=== PATIENT | male | born 1960 | race Caucasian/White ===

== ENCOUNTER → 2019-01-16 | Outpatient (CLI) | payer BC ==
[2019-01-16 23:46] LABS: ALT 81 U/L (10-49); AST 52 U/L (14-35)
== END | disposition home or self-care (01) ==
LOC: LABWHC1 16:03
PROVIDERS: ATTEND Podiatrist Foot & Ankle Surgery
DX: K74.69 Other cirrhosis of liver (principal)
CPT/HCPCS: 36415; 84450; 84460

== ENCOUNTER → 2021-10-04 | Outpatient (CLI) | payer BC ==
[2021-10-04 17:12] LABS: INR 0.9 (<1.2); Partial Thromboplastin Time 23.8 sec (22.0-30.0)
--- NOTE | 2021-10-04 19:19 | XR ---
EXAMINATION TYPE: XR chest 2V DATE OF EXAM: 10/04/2021 COMPARISON: X-ray dated 09/06/2013 HISTORY: Preoperative x-ray TECHNIQUE: Frontal and lateral views of the chest are obtained. FINDINGS: Slightly prominent left hilar shadow which could be due to summation of vascular shadows however unde rlying small hilar lesion or lymph node cannot be excluded. Grossly unremarkable lungs otherwise. No pleural effusion or definite pneumothorax. No cardiomegaly. Aortic atherosclerotic calcifications. Degenerative changes of the thoracic spine. IMPRESSION: As above.
[2021-10-04 23:18] LABS: African American GFR (CKD) 82.9 (60.0-200.0); Albumin 4.4 g/dL (3.8-4.9); BUN/Creat Ratio 11.36 Ratio (12.00-20.00); Blood Urea Nitrogen 12.5 mg/dL (9.0-27.0); Calcium 9.9 mg/dL (8.7-10.3); Globulin 2.2 g/dL (1.6-3.3); Non-African American GFR(CKD) 71.6 (60.0-200.0); Potassium 4.3 mmol/L (3.5-5.5); Total Bilirubin 0.3 mg/dL (0.30-1.20); Total Protein 6.6 g/dL (6.2-8.2)
[2021-10-04 23:22] LABS: HCT 39.3 % (39.6-50.0); HGB 13.2 g/dL (13.0-17.0); MCH 30.8 pg (27.0-32.0); MCHC 33.6 g/dL (32.0-37.0); MCV 91.8 fL (80.0-97.0); Mean Platelet Volume 10.3 fL (9.5-12.2); NRBC Per 100 WBC 0 /100 WBCS (0.0-0.0); Platelet Count 370 X 10*3/uL (140-440); RBC 4.28 X 10*6/uL (4.40-5.60); RDW 12.5 % (11.5-14.5); WBC 5.84 X 10*3/uL (4.50-10.00)
== END | disposition home or self-care (01) ==
LOC: LABPAT 15:58
PROVIDERS: ATTEND Orthopaedic Surgery Orthopaedic Surgery of the Spine
DX: Z01.812 Encounter for preprocedural laboratory examination (principal); M48.00 Spinal stenosis, site unspecified; K42.9 Umbilical hernia without obstruction or gangrene; F33.9 Major depressive disorder, recurrent, unspecified
CPT/HCPCS: 71046; 80053; 85027; 85610; 85730; 87070

== ENCOUNTER → 2021-10-06 | Outpatient (CLI) | payer BC ==
[2021-10-06 20:06] LABS: Appearance,Urine Turbid (Clear); Bacteria,Urine None Seen /HPF (None Seen); Bilirubin,Urine Negative (Negative); Blood,Urine Negative (Negative); Color,Urine Yellow (Yellow); Ketones,Urine Negative (Negative); Nitrite,Urine Negative (Negative); Specific Gravity,Urine 1.016 (1.001-1.030); Urobilinogen,Urine 0.2 (0.2,1.0)
== END | disposition home or self-care (01) ==
LOC: LABPAT 10:33
PROVIDERS: ATTEND Orthopaedic Surgery Orthopaedic Surgery of the Spine
DX: Z01.812 Encounter for preprocedural laboratory examination (principal); M48.00 Spinal stenosis, site unspecified
CPT/HCPCS: 81001

== ENCOUNTER 2021-10-12 07:15 | Inpatient (IN) | payer BC ==
[2021-10-10 15:06] VITALS: BMI 26.5
[~2021-10-12 07:15] MED LIST: VANCOMYCIN 1,250 MG in SODIUM CHLORIDE 0.9% 250 ML IVPB PRN; fentaNYL (PF) 50 MCG/ML 2 ML AMP IV PRN
[2021-10-12] MEDS: ceFAZolin 1,000 MG in SODIUM CHLORIDE 0.9% IRRIGATIO 1,000 ML IRRIGATION PRN ×2 (08:00→08:30)
[2021-10-12] MEDS ORDERED: ONDANSETRON 4 MG/2 ML VIAL ONE (08:07)
[2021-10-12] MEDS ORDERED: GLYCOPYRROLATE 0.2 MG/ML 2 ML VIAL ONE (08:27)
[2021-10-12] MEDS ORDERED: ROCURONIUM 10 MG/ML (5 ML VIAL) IV ONE (08:27)
[2021-10-12] MEDS ORDERED: ePHEDrine 50 MG/ML 1 ML VIAL ONE (08:27)
[2021-10-12] MEDS ORDERED: SUCCINYLCHOLINE CHLORIDE 100 MG/5 ML SYR IV ONE (08:27)
[2021-10-12] MEDS ORDERED: VASOPRESSIN 20 UNIT/ML 1 ML VIAL ONE (08:27)
[2021-10-12] MEDS ORDERED: KETAMINE 10 MG/ML 20 ML VIAL ONE (08:27)
[2021-10-12] MEDS ORDERED: PROPOFOL 10 MG/ML 20 ML VIAL IV ONE (08:27)
[2021-10-12] MEDS ORDERED: PHENYLEPHRINE-0.9% NACL SYG 1,000 MCG/10 ML SYRINGE ONE (08:27)
[2021-10-12] MEDS ORDERED: fentaNYL (PF) 50 MCG/ML 2 ML AMP ONE (08:27)
[2021-10-12] MEDS ORDERED: ALBUMIN HUMAN 5% (25gm) 500 ML VIAL IVPB ONE (08:27)
[2021-10-12] MEDS ORDERED: NEOSTIGMINE 1 MG/ML 10 ML VIAL ONE (08:27)
[2021-10-12] MEDS ORDERED: MIDAZOLAM 2 MG/2 ML VIAL ONE (08:27)
[2021-10-12] MEDS ORDERED: LIDOCAINE 2% INJ 20 MG/ML (2 ML VIAL) ONE (08:27)
[2021-10-12] MEDS ORDERED: LACTATED RINGERS 1,000 ML IV ONE ×5 (08:29→13:50)
[2021-10-12] MEDS ORDERED: BUPIVACAINE (PF) 0.5% 30 ML VIAL SQ ONE ×3 (09:04→09:24)
[2021-10-12] MEDS ORDERED: LIDOCAINE 2%-EPI 1:100,000 20 ML VIAL SQ ONE ×3 (09:04→09:24)
[2021-10-12] MEDS ORDERED: GELATIN SPONGE,ABSORB (LARGE) 1 EACH SPONGE TOPICAL ONE ×2 (09:25→09:45)
[2021-10-12] MEDS ORDERED: THROMBIN (BOVINE) 5,000 UNIT VIAL TOPICAL ONE ×2 (09:25→09:45)
[2021-10-12] MEDS ORDERED: BENZOCAINE/MENTHOL LOZENG 1 EACH LOZENGE MUCOUS MEM PRN (12:53)
[2021-10-12] MEDS ORDERED: HYDROmorphone 1 MG/ML 1 ML SYRINGE IVP PRN (12:53)
[2021-10-12] MEDS ORDERED: HYDROcodone/APAP 5-325MG 1 EACH TAB PO PRN (12:53)
[2021-10-12] MEDS ORDERED: ONDANSETRON 4 MG/2 ML VIAL IVP PRN (12:54)
[2021-10-12] MEDS ORDERED: SENNOSIDES-DOCUSATE SODIUM 1 EACH TAB PO PRN (12:54)
--- NOTE | 2021-10-12 13:01 | P.OP ---
Date of Procedure: 10/12/21 Preoperative Diagnosis: Spinal stenosis L3 4 L4 5 severe disc degeneration L3 4 L4 5, low back pain, lower extremity radiculopathy, facet arthrosis, degenerative scoliosis Postoperative Diagnosis: Same Anesthesia: GETA Pathology: none sent Condition: stable Disposition: PACU Description of Procedure: DESCRIPTION OF PROCEDURE(S): BRIEF OPERATIVE NOTE Preoperative Diagnosis: Spinal stenosis L3 4 L4 5 severe disc degeneration L3 4 L4 5, low back pain, lower extremity radiculopathy, facet arthrosis, degenerative scoliosis Postoperative Diagnosis: Same Procedure: Laminectomy and decompression L3 [address] navigation aided Minimally invasive Posterior lateral decompression and facet fusion L3 4 L4 5 Minimally invasive Transforaminal lumbar interbody fusion for a 360 fusion L3 4 L4 5 Discectomy for decompression L3 4 L4 5 Placement of interbody graft L3 4 L4 5 Use of computer navigation for fusion L3 4 and 5 Local autogenous bone grafting Aspiration of bone marrow from the vertebral body pedicle at L3 on the right Use of bone graft extenders Surgeon: Dr. Mariee [employer] Specialist: Yo REYES who is present throughout the entire the case persistence during positioning, dissection, exposure, visualization, and all crucial elements of the case as well as closure. Anesthesia: General anesthesia Estimated blood loss: Approximately 250 mL Complications: None apparent Components implanted: K2M minimally invasive Heth pedicle screw system withscrews measuring 6.5 mm in diameter to rods one Dover interbody cage and an expandable interbody cage with 10 mL of osteo amp bio4 bone graft substitute and 30 mL of the BX bone fibers to supplement the local autogenous bone graft and bone marrow aspirate Disposition: To recovery room in good stable condition. OPERATIVE INDICATIONS The patient has had severe issues at their lower extremity in her lower back over the past several years with significant worsening over the past several months. Over the past few months the patient had pain at their back and their lower extremities. The patient is having severe radicular symptoms at their lower extremity with weakness. The patient is having significant pain in their back. They are unable to obtain any prolonged comfort by conservative treatment. We did aggressive conservative treatment with medications therapy and interventional pain management however thery were not having any relief. The patient's imaging showed severe changes L3 4 and L4 5 which really well with his low back and lower extremity symptoms. The patient has been through conservative treatment. We discussed various treatment options including surgery, and the patient wishes to proceed with surgery We discussed the risk, patient's alternatives and benefits of surgery including but not limited to, risk of bleeding risk of infection, risk of need for further surgery, risk of decreased, loss of motion, muscle function, malunion nonunion, hardware failure, nerve damage, paralysis, heart attack, blindness and . They understood issues with the current pandemic and the possibility of exposure. OPERATIVE SUMMARY After discussing all the risks, patient alternatives and benefits at length, the patient elected to proceed with surgical intervention, signed informed consent, and presented for their procedure. The patient was seen and examined in the preoperative holding area and the surgical site was marked. The patient was given antibiotics and brought to the operating room. The patient was sedated and intubated by anesthesia in standard fashion. The patient was positioned on to the operating room table in a prone position on the appropriate frame which was well-padded and well molded. We were careful to pad any bony prominences and pressure points. We were careful to maintain the patient's cervical spine and good neutral alignment and position throughout. The patient was prepped and draped in a normal standard fashion. An appropriate timeout and keystone protocol performed. We were able to proceed with the surgery. The local wound area was infiltrated with local anesthetic at L3 4 and 5 and at the right iliac crest. Over the right iliac crest I was able to make small stab incisions and establish a guidepin screw fixation to the iliac crest 2. I was able place the computer referencing device over the guidepins to establish an appropriate reference point for the Ziem CT navigation. We then were able to place patient in an appropriate drape and do a navigation spin for visualization and 3-D reconstruction of the lumbar spine. I was able utilize C-arm guidance and navigation to establish appropriate position over the pedicles bilaterally at the appropriate levels . With the appropriate levels of L3 4 and 5 confirmed was able to make small incisions over the appropriate pedicle sites bilaterally. Utilizing the computer navigation device I was able to establish bony landmarks at the right iliac crest for a bony reference point for the navigation device. I was able to establish a Jamshidi needle over the lateral aspect of the pedicle and advanced the trocar into the pedicle being careful not to breech superiorly inferiorly medially or laterally using computer navigation device. Position was confirmed regularly with AP and lateral images on C-arm and with the computer navigation device at the appropriate levels bilaterally. I was able to establish the trocar into the pedicle appropriately into the posterior aspect of the vertebral body bilaterally at the appropriate levels. This was done at each of the pedicle positions and each of the vertebrae. At the superior vertebrae of L3 on the right I was able to take approximately 25 mL of bone aspiration for use later in the case to supplement the allograft and autograft bone. I was able place the guidewire into the trocar and into the vertebral body appropriately under C-arm guidance. Dissection was taken down over the wire to the appropriate starting position for the screw placed. The appropriate length screw was chosen, threaded over the guidewire and screwed appropriately into the pedicle and vertebral body under C-arm guidance in excellent alignment and position with good bony purchase. This is done at each of the screw sites at the appropriate levels at L3 4 and 5 bilaterally.. With the screws intact I extended the incision to connect the screw hole sites on the most symptomatic side on the left. I dissected down to establish access over the pars and lamina to the base of the spinous process. I was able to expose the facet joint. The capsule the facet was taken down and showed some facet arthrosis at the joint. I was able to use a combination of curettes and Kerrison rongeurs and a high-speed drill to take down the facet joint and do a facetectomy. I was able get excellent foraminal decompression and central decompression with undermining across midline to perform a laminectomy centrally and contralaterally. I was able get good central decompression. The ligamentum flavum was taken down to further decompress centrally and at bilateral neural foramen. I was able to expose the disc space and visualize the traversing nerve root. Note was made of some disc protrusion and disc herniation that was abutting the traversing nerve root at the level causing further compression of the nerve root. I was able to establish a annulotomy at the appropriate level protecting soft tissue and neural structures. Note was made of some severe disc desiccation at the disc with essentially complete disc height loss at L4 5 and significant disc degeneration at L3 4.. I performed a complete discectomy with accommodation of curettes and rasps and scrapers. I was able get good endplate preparation at the disc space. I sized for the appropriate size interbody spacer protecting the soft tissue and neural structures. The wound was copiously irrigated and suctioned dry. There is no evidence of any dural tear or leak. I was able to pack the disc space with local autogenous bone graft as well as a small amount of bone graft which was also placed into the interbody cage itself. Protecting the soft tissue structures and neural structures I was able place the interbody cage in good alignment and good position with good fit and fill at the interbody space. Position was confirmed with C-arm guidance. Good hemostasis maintained. There is no evidence of any dural tear or leak. The wound was irrigated and suctioned dry. With the hardware intact, intraoperative C-arm imaging was again taken which showed good alignment and position of the hardware at the appropriate levels at L3-L4 and L5. We were then able to measure, contour and place the rods and appropriate hardware bilaterally. I was able to place capcrews, tighten them down, and torque them with the torque screwdriver appropriately. With this intact I was able to place the local autogenous bone graft with additional bone graft enhancer as necessary into the posterior lateral gutters over the decorticated transverse processes and facet joints on the contralateral side. The remainder of the bone graft was placed over the facet joint on the contralateral side after taking down the facet joint capsule. With the bone graft intact, a stable construct, and good decompression at the appropriate levels, we were able to proceed with closure. Good hemostasis was maintained. There is no evidence of dural tear or leak. The fascia was closed for a watertight closure. he subcuticular tissue was closed with absorbable suture. The wound was cleaned and dried and dressed with the appropriate dressing. The drapes were broken down. The patient was gently rolled back onto their hospital bed being careful to maintain their cervical spine and good neutral alignment and position. They were woken up by anesthesia, extubated, and brought to the recovery room in good stable condition. The patient will be admitted to the hospital for appropriate postoperative care, medical management and monitoring. We will continue to follow them closely about the postoperative course.
--- NOTE | 2021-10-12 13:02 | FL ---
EXAMINATION TYPE: FL guidance operating room, XR lumbar spine 2 or 3V DATE OF EXAM: 10/12/2021 CLINICAL HISTORY: Low back pain. TECHNIQUE: Fluoroscopy. COMPARISON: None. FINDINGS: Fluoroscopic guidance was provided during lumbar fusion procedure performed by Dr. Mariee. A total of 27 seconds of fluoroscopic time was utilized during the procedure and 10 spot images are acquired. Intraoperative images obtained are suboptimal due to underpenetration. Bilateral interpedic ular rods and screws at L3-L5 level are eventually identified. Position and alignment is difficult to assess on picture images sent to PACS. IMPRESSION: As Above.
[2021-10-12] MEDS: HYDROmorphone 0.5 MG/0.5 ML SYRINGE IVP PRN ×8 (13:24→16:01)
[2021-10-12] MEDS ORDERED: HYDROcodone/APAP 7.5-325MG 1 EACH TAB PO PRN (14:09)
[2021-10-12] MEDS: LACTATED RINGERS 1,000 ML IV SCH (19:04)
[2021-10-12] MEDS: SODIUM CHLORIDE 0.9% 1,000 ML IV SCH (20:05)
[2021-10-12] MEDS: CYCLOBENZAPRINE 10 MG TAB PO PRN (20:40)
[2021-10-12] MEDS: TAMSULOSIN 0.4 MG CAP.ER.24H PO SCH (21:39)
[2021-10-12] MEDS: AMITRIPTYLINE HCL 50 MG TAB PO SCH (21:39)
[2021-10-12] MEDS: allopurinoL 300 MG TAB PO SCH (21:39)
[2021-10-12] MEDS: HYDROmorphone 1 MG/ML 1 ML SYRINGE IVP PRN (23:08)
[2021-10-12] MEDS: HYDROcodone/APAP 10-325MG 1 EACH TAB PO PRN (23:51)
--- NOTE | 2021-10-13 00:29 | P.CONS ---
History of Present Illness - Reason for Consult Consult date: 10/12/21 medical management Requesting physician: Lupe Mariee - Chief Complaint spinal stenosis post laminectomy and decompression of L3-L4, L4-L5 - History of Present Illness HISTORY OF PRESENT ILLNESS 61-year-old male one of my office patient with known for over 20 years with past medical history of hypertension hyperlipidemia and gout and BPH who is known to have chronic pain syndrome with chronic degenerative disc disease lumbar spine pain for many years. Patient had working conservative for long time also has known to have history of IBS along with psoriasis and severe GERD post Niesen fundoplication in the past, history of kidney stone as well. patient had developed severe worsening lumbar pain with weakness of the lower extremity along with neuro claudication from the knee down bilaterally with worsening symptom last 3 months. Patient had try conservative management along with pain management was not effective. Patient was scheduled for elective surgery with Dr. Mariee which was done today successfully was admitted to the hospital afterward patient was started on his home meds, he is stable hemodynamically pain is under control at this point. REVIEW OF SYSTEMS Constitutional: No fever, no chills, no night sweats. No weight change. No weakness, fatigue or lethargy. No daytime sleepiness. EENT: No headache. No blurred vision or double vision, no loss of vision. No loss of Hearing, no ringing in the ears, no dizziness. No nasal drainage or congestion. No epistaxis. No sore throat. Lungs: No shortness of breath, cough, no sputum production. No wheezing. Cardiovascular: No chest pain, no lower extremity edema. No palpitations. No paroxysmal nocturnal dyspnea. No orthopnea. No lightheadedness or dizziness. No syncopal episodes. Abdominal: No abdominal pain. No nausea, vomiting. No diarrhea. No constipation. No bloody or tarry stools.. No loss of appetite. Genitourinary: No dysuria, increased frequency, urgency. No urinary retention. Musculoskeletal: No myalgias. No muscle weakness, no gait dysfunction, no frequent falls. positive lower back pain with incision pain as well. Integumentary: No wounds, no lesions. No rash or pruritus. No unusual bruising. No change in hair or nails. Neurologic: No aphasia. No facial droop. No change in mentation. No head injury. No headache. No paralysis. slight paresthesia from the knee down bilaterally.. Psychiatric: No depression. No anxiety. No mood swings. Endocrine: No abnormal blood sugars. No weight change. No excessive sweating or thirst. No cold intolerance. SOCIAL HISTORY he does not smoke, no alcohol abuse, no marijuana use, he work in factory for many years. Patient is and lives with his . FAMILY HISTORY he has 2 children both are living and well. Had 2 other siblings one of them passed from encephalopathyprobably organic brain syndrome earlier in life in his 60s. his other brother is living has history of hypertension and hyperlipidemia. patient's father dying in his late 70s from advance dementia, his mother is living in her 80s has history of stroke with A. fib and mild memory loss. PHYSICAL EXAMINATION Gen: This is well-developed in no acute respiratory distress. HEENT: Head is atraumatic, normocephalic. Pupils equal, round. Sclerae is anicteric. NECK: Supple. No JVD. No lymphadenopathy. No thyromegaly. LUNGS: Clear to auscultation. No wheezes or rhonchi. No intercostal retractions. HEART: Regular rate and rhythm. No murmur. ABDOMEN: Soft. Bowel sounds are present. No masses. No tenderness. EXTREMITIES: No pedal edema. No calf tenderness. NEUROLOGICAL: Patient is awake, alert and oriented x3. Cranial nerves 2 through 12 are grossly intact. slight weakness of the lower extremity with mild paresthesia and numbness from the knee down. Lumbar spine: His incision looks fine with no hematoma induration no sign of infection. ASSESSMENT AND PLAN 1.post lumbar compression and fusion of L3-L4, L4-L5. Resume home meds, watch pain and watch patient hemodynamic status carefully. 2 hypertension: We'll resume his amlodipine/LOSARTAN 5/40 MG HALF TABLET DAILY. 3 HYPERLIPIDEMIA: HAS BEEN OFF STATIN BECAUSE OF SIDE EFFECTS USING TRICOR AND STATIN PREVIOUSLY. 4 BPH: WITH SLIGHT WORSENING DISTENTION SPECIALLY WITH HIS BACK PROBLEM LATELY CONTINUE FLOMAX 0.4 MG TWICE A DAY. 5 HISTORY OF RECURRENT GOUT: PATIENT HAS BEEN ON ZYLOPRIM 300 MG DAILY WITH NO FLAREUP LATELY. 6 CHRONIC HISTORY OF MIGRAINE RECURRENT HEADACHE HAS BEEN DOING MUCH BETTER LATELY ON AMITRIPTYLINE 50 MG AT BEDTIME STILL USING HYDROCORTISONE ON FIORICET ON NEEDED BASIS. 7 CHRONIC HISTORY OF GLEZ: WITH SLIGHTLY ABNORMAL LIVER FUNCTION TEST HAS BEEN SLIGHTLY BETTER LATELY PATIENT HAS LOST WEIGHT HIS CHOLESTEROL HAS BEEN BETTER CONTROLLED PATIENT WILL BENEFIT FROM BEING ON PIOGLITAZONE OR METFORMIN EVENTUALLY. 8 CHRONIC PAIN SYNDROME: HAS BEEN ON HYDROCODONE ON AN -NEEDED BASIS. 9 SEVERE GERD POST GELACIO FUNDOPLICATION: PATIENT IS STILL USING PPI ON DEMAND RESUME PANTOPRAZOLE AT 40 MG DAILY. 10 MRSA in nasal swab: was started on Vanco IV and start Doxy orally for 7 more days after Hospitalization. 11 DVT PROPHYLAXIS: EARLY MOBILIZATION AND KNEE-HIGH WENDY HOSE WILL BE USE. CODE STATUS: FULL CODE. DR. Mariee THANK YOU MUCH FOR THE CONSULT IF I CAN BE ANY FURTHER HELP TO PLEASE LET ME KNOW. Past Medical History Past Medical History: GERD/Reflux, Hyperlipidemia, Hypertension, Pneumonia, Skin Disorder Additional Past Medical History / Comment(s): "HYPOGLYCEMIA. IBS. PSORIASIS TO EAR AND SCALP. Acid reflux resolved since Gelacio Fundoplasty. Hx kidney stones. Hx Gout. History of Any Multi-Drug Resistant Organisms: None Reported Past Surgical History: Appendectomy, Hernia Repair, Orthopedic Surgery Additional Past Surgical History / Comment(s): ORIF LEFT KNEE X2, exploratoy surgery prior to appendectomy, I&D OF APPENDECTOMY INCISION, surgery for septal deviation, testicular biopsy, hydrocele surgery, ganglion cysts removed from the left finger and left foot, Gelacio Fundoplasty. Past Anesthesia/Blood Transfusion Reactions: No Reported Reaction Past Psychological History: No Psychological Hx Reported Smoking Status: Never smoker Past Alcohol Use History: None Reported Past Drug Use History: None Reported - Past Family History Mother Family Medical History: CVA/TIA, GERD/Reflux, Hyperlipidemia, Hypertension Father Family Medical History: Cancer, GERD/Reflux, Hyperlipidemia, Hypertension, Memor y Impairment Additional Family Medical History / Comment(s): Skin cancer. Brother(s) Family Medical History: No Reported History Son(s) Family Medical History: No Reported History Medications and Allergies Home Medications Medication Instructions Recorded Confirmed Type Amitriptyline HCl 50 mg PO HS 06/11/14 10/10/21 History amLODIPine BES/OLMESARTAN MED 0.5 tab PO QAM 07/29/14 10/10/21 History [Yoel 5-40 mg Tablet] Allopurinol [Zyloprim] 300 mg PO HS 10/10/21 10/10/21 History HYDROcodone/APAP 7.5-325MG [Wickes 1 tab PO Q8H PRN 10/10/21 10/10/21 History 7.5-325] Ibuprofen [Advil] 200 mg PO Q8HR PRN 10/10/21 10/10/21 History Magnesium (Unknown Dose) 1 tab PO DAILY 10/10/21 History Potassium Gluconate [Potassium 99 mg PO DAILY 10/10/21 10/10/21 History Gluconate ER] Tamsulosin [Flomax] 0.4 mg PO BID 10/10/21 10/10/21 History Tart Alfonso 1,000 mg PO DAILY 10/10/21 History Doxycycline [Vibramycin] 100 mg PO BID 10 Days #14 capsule 10/13/21 Rx Cyclobenzaprine [Flexeril] 10 mg PO TID PRN #60 tab 10/14/21 Rx HYDROcodone/APAP 10-325MG [Wickes 1 each PO Q6H PRN #28 tab 10/14/21 Rx 10] Sennosides-Docusate Sodium 1 tab PO BID PRN #60 tablet 10/14/21 Rx [Senokot-S] Allergies Allergy/AdvReac Type Severity Reaction Status Date / Time morphine AdvReac Swelling Verified 10/10/21 14:34 Physical Exam Vitals: Vital Signs Temp Pulse Resp BP BP Pulse Ox 10/12/21 19:18 98.3 F 79 16 127/66 92 L 10/12/21 15:39 92 21 123/71 95 10/12/21 14:56 98.3 F 91 20 126/72 96 10/12/21 14:25 94 18 145/77 95 10/12/21 14:16 95 18 138/78 94 L 10/12/21 14:06 97 22 134/72 94 L 10/12/21 14:01 97 20 142/78 98 10/12/21 13:53 99 20 120/57 99 10/12/21 13:42 101 H 16 102/55 96 10/12/21 13:31 100 14 98 10/12/21 13:20 98/49 10/12/21 13:16 96 16 90/55 96 10/12/21 13:01 97.2 F L 92 16 85/50 94 L 10/12/21 08:00 98.1 F 81 20 149/83 93 L Intake and Output 10/12/21 10/12/21 10/12/21 06:59 14:59 22:59 Intake Total 4850 350 Output Total 350 500 Balance 4500 -150 Intake: IV 4350 Oral 350 Blood Product 500 Output: Urine 100 500 Estimated Blood Loss 250 Other: Voiding Method Indwelling Catheter Weight 84.5 kg Results CBC & Chem 7: 10/15/21 04:29 10/15/21 04:29
[2021-10-13] MEDS: HYDROmorphone 1 MG/ML 1 ML SYRINGE IVP PRN ×3 (02:15→14:57)
[2021-10-13] MEDS: SODIUM CHLORIDE 0.9% 1,000 ML IV SCH ×2 (03:21→19:26)
[2021-10-13] MEDS: HYDROcodone/APAP 10-325MG 1 EACH TAB PO PRN ×3 (04:52→19:25)
[2021-10-13] MEDS: CYCLOBENZAPRINE 10 MG TAB PO PRN (06:04)
[2021-10-13] MEDS: LOSARTAN 50 MG TAB PO SCH (08:58)
[2021-10-13] MEDS: SENNOSIDES-DOCUSATE SODIUM 1 EACH TAB PO SCH (08:58)
[2021-10-13] MEDS: PANTOPRAZOLE 40 MG TABLET PO SCH (08:58)
[2021-10-13] MEDS: TAMSULOSIN 0.4 MG CAP.ER.24H PO SCH ×2 (08:58→20:49)
[2021-10-13] MEDS: amLODIPine 2.5 MG TAB PO SCH (08:58)
[2021-10-13 09:19] LABS: Basophils # (A) 0.03 X 10*3/uL (0.00-0.10); Basophils % (A) 0.2 %; Eosinophils # (A) 0.03 X 10*3/uL (0.04-0.35); Eosinophils % (A) 0.2 %; HCT 31.4 % (39.6-50.0); HGB 10.5 g/dL (13.0-17.0); Immature Grans, Automated 0.7 %; Lymphocytes # (A) 1.11 X 10*3/uL (0.90-5.00); Lymphocytes % (A) 7.9 %; MCH 31.2 pg (27.0-32.0); MCHC 33.4 g/dL (32.0-37.0); MCV 93.2 fL (80.0-97.0); Mean Platelet Volume 10.3 fL (9.5-12.2); Monocytes # (A) 1.21 X 10*3/uL (0.20-1.00); Monocytes % (A) 8.6 %; NRBC Per 100 WBC 0 /100 WBCS (0.0-0.0); Neutrophils # (A) 11.55 X 10*3/uL (1.80-7.70); Neutrophils % (A) 82.4 %; Platelet Count 285 X 10*3/uL (140-440); RBC 3.37 X 10*6/uL (4.40-5.60); RDW 12.9 % (11.5-14.5); WBC 14.03 X 10*3/uL (4.50-10.00)
--- NOTE | 2021-10-13 09:25 | P.PN ---
Progress Note - Text Progress Note Date: 10/13/21 Postoperative day #1 Patient is seen and examined today at bedside. The patient has some pain around the surgical site as expected. The pain in his low bit more than he expected and he is still having significant difficulty with trying to mobilize in bed. He has not yet been up out of bed. His Weinberg is intact Pain is being controlled with medication. Physical Exam Afebrile with stable vital signs Abdomen is soft nontender. Chest has good excursion deep and space expiration The incision site is clean dry and intact. No erythema there is no purulence. The dressing is intact Extremities have not had neurologic change from prior to surgery. He has sustained dorsal flexion plantar flexion and EHL intact. He is able to bend and flex his knees. Calves and thighs were soft nontender without evidence of DVT. Assessment/Plan Postoperative day 1 status post revision decompression fusion L34 and L4 5 or his degenerative scoliosis and spinal stenosis Patient is progressing as expected from the surgery. His neurologic status is doing well and his legs are doing well but he is having significant back pain. We'll see if we can direct get this under better control with IV and oral medications to try to get him to mobilize better. He will likely need another couple of days in the hospital before his able to return home. He will discontinue the Weinberg today. We will continue to increase the patient's mobilization with therapy. We will continue pain control with oral or IV medications. We'll continue to follow patient closely.
[2021-10-13 10:43] LABS: African American GFR (CKD) 82.9 (60.0-200.0); Albumin/Globulin Ratio 2.5 (1.60-3.17); Anion Gap 9.8 mmol/L (10.00-18.00); BUN/Creat Ratio 13.18 Ratio (12.00-20.00); Blood Urea Nitrogen 14.5 mg/dL (9.0-27.0); Calcium 8.8 mg/dL (8.7-10.3); Carbon Dioxide 24.2 mmol/L (20.0-27.5); Globulin 1.6 g/dL (1.6-3.3); Non-African American GFR(CKD) 71.6 (60.0-200.0); Potassium 4.3 mmol/L (3.5-5.5); Total Bilirubin 0.8 mg/dL (0.30-1.20); Total Protein 5.6 g/dL (6.2-8.2)
--- NOTE | 2021-10-13 11:21 | P.PN ---
Subjective Progress Note Date: 10/13/21 HISTORY OF PRESENT ILLNESS 61-year-old male one of my office patient with known for over 20 years with past medical history of hypertension hyperlipidemia and gout and BPH who is known to have chronic pain syndrome with chronic degenerative disc disease lumbar spine pain for many years. Patient had working conservative for long time also has known to have history of IBS along with psoriasis and severe GERD post Niesen fundoplication in the past, history of kidney stone as well. patient had developed severe worsening lumbar pain with weakness of the lower extremity along with neuro claudication from the knee down bilaterally with worsening symptom last 3 months. Patient had try conservative management along with pain management was not effective. Patient was scheduled for elective surgery with Dr. Mariee which was done today successfully was admitted to the hospital afterward patient was started on his home meds, he is stable hemodynamically pain is under control at this point. 10/13: [facility] he is lying flat in bed. He is currently on vancomycin. His nasal swab came back positive for MRSA and plan is for discharge on doxycycline for 7 days. Patient states he has not had a bowel movement as of yet. He is having some pain at the surgical site area. Anticipate that he will be up and working with physical therapy today. Patient has been afebrile, heart rate 93, blood pressure 145/75, pulse ox 88-91% on 5 L nasal cannula. CBC reveals WBC 14.0, hemoglobin 10.5, platelet count 285. A lateralized normal. Anion gap 9.8. Creatinine 1.1. Blood sugar 141. AST 87, ALT 58, total protein 5.6. Patient is reaching 2000 on incentive spirometry. REVIEW OF SYSTEMS Constitutional: No fever, no chills, no night sweats. No weight change. No weakness, fatigue or lethargy. No daytime sleepiness. EENT: No headache. No blurred vision or double vision, no loss of vision. No loss of Hearing, no ringing in the ears, no dizziness. No nasal drainage or congestion. No epistaxis. No sore throat. Lungs: No shortness of breath, cough, no sputum production. No wheezing. Cardiovascular: No chest pain, no lower extremity edema. No palpitations. No paroxysmal nocturnal dyspnea. No orthopnea. No lightheadedness or dizziness. No syncopal episodes. Abdominal: No abdominal pain. No nausea, vomiting. No diarrhea. No constipation. No bloody or tarry stools.. No loss of appetite. Genitourinary: No dysuria, increased frequency, urgency. No urinary retention. Musculoskeletal: No myalgias. Generalized muscle weakness, no gait dysfunction, no frequent falls. positive lower back pain with incision pain as well. Integumentary: No wounds, no lesions. No rash or pruritus. No unusual bruising. No change in hair or nails. Neurologic: No aphasia. No facial droop. No change in mentation. No head injury. No headache. No paralysis. slight paresthesia from the knee down bilaterally.. Psychiatric: No depression. No anxiety. No mood swings. Endocrine: No abnormal blood sugars. No weight change. No excessive sweating or thirst. No cold intolerance. PHYSICAL EXAMINATION Gen: This is well-developed in no acute respiratory distress.Patient is resting in bed. HEENT: Head is atraumatic, normocephalic. Pupils equal, round. Sclerae is anicteric. NECK: Supple. No JVD. No lymphadenopathy. No thyromegaly. LUNGS: Clear to auscultation. No wheezes or rhonchi. No intercostal retractions. HEART: Regular rate and rhythm. No murmur. ABDOMEN: Soft. Bowel sounds are present. No masses. No tenderness. EXTREMITIES: No pedal edema. No calf tenderness. NEUROLOGICAL: Patient is awake, alert and oriented x3. Cranial nerves 2 through 12 are grossly intact. slight weakness of the lower extremity with mild paresthesia and numbness from the knee down. Lumbar spine: His incision looks fine with no hematoma induration no sign of infection. ASSESSMENT AND PLAN 1.post lumbar laminectomy and decompression of L3-L4, L4-L5. Resume home meds, watch pain and watch patient hemodynamic status carefully.Continue incentive spirometry to reduce incidence of atelectasis and hospital acquired pneumonia. 2 hypertension: We'll resume his amlodipine/LOSARTAN 5/40 MG HALF TABLET DAILY. 3 HYPERLIPIDEMIA: HAS BEEN OFF STATIN BECAUSE OF SIDE EFFECTS USING TRICOR AND STATIN PREVIOUSLY. 4 BPH: WITH SLIGHT WORSENING DISTENTION SPECIALLY WITH HIS BACK PROBLEM LATELY CONTINUE FLOMAX 0.4 MG TWICE A DAY. 5 HISTORY OF RECURRENT GOUT: PATIENT HAS BEEN ON ZYLOPRIM 300 MG DAILY WITH NO FLAREUP LATELY. 6 CHRONIC HISTORY OF MIGRAINE RECURRENT HEADACHE HAS BEEN DOING MUCH BETTER LATELY ON AMITRIPTYLINE 50 MG AT BEDTIME STILL USING HYDROCORTISONE ON FIORICET ON NEEDED BASIS. 7 CHRONIC HISTORY OF GLEZ: WITH SLIGHTLY ABNORMAL LIVER FUNCTION TEST HAS BEEN SLIGHTLY BETTER LATELY PATIENT HAS LOST WEIGHT HIS CHOLESTEROL HAS BEEN BETTER CONTROLLED PATIENT WILL BENEFIT FROM BEING ON PIOGLITAZONE OR METFORMIN EVENTUALLY. 8 CHRONIC PAIN SYNDROME: HAS BEEN ON HYDROCODONE ON AN -NEEDED BASIS. 9 SEVERE GERD POST CIERA FUNDOPLICATION: PATIENT IS STILL USING PPI ON DEMAND RESUME PANTOPRAZOLE AT 40 MG DAILY. 10 DVT PROPHYLAXIS: EARLY MOBILIZATION AND KNEE-HIGH WENDY HOSE WILL BE USE. 11. Nasal swab positive for MRSA. Continue vancomycin and plan for doxycycline at time of discharge. CODE STATUS: FULL CODE. DR. Mariee THANK YOU MUCH FOR THE CONSULT IF I CAN BE ANY FURTHER HELP TO PLEASE LET ME KNOW. Impression and plan of care have been directed as dictated by the signing physician. Marychuy Emerson nurse practitioner acting as scribe for signing physician. Objective - Vital Signs Vital signs: Vital Signs Temp 99.3 F 10/13/21 07:27 Pulse 93 10/13/21 07:27 Resp 20 10/13/21 04:43 BP 145/75 10/13/21 07:27 Pulse Ox 88 L 10/13/21 07:27 Intake & Output 10/12/21 10/13/21 10/13/21 18:59 06:59 18:59 Intake Total 5200 600 Output Total 350 1100 Balance 4850 -500 Weight 84.5 kg Intake: IV 4350 Intake, IV Titration 600 Amount Sodium Chloride 0.9% 1, 600 000 ml @ 75 mls/hr IV . [id number] [facility] Rx#:[id number] Oral 350 Blood Product 500 Output: Urine 100 1100 Estimated Blood Loss 250 Other: Voiding Method Indwelling Catheter - Labs CBC & Chem 7: 10/13/21 05:07 10/13/21 05:07
[2021-10-13] MEDS: LACTATED RINGERS 1,000 ML IV SCH (17:10)
[2021-10-13] MEDS: allopurinoL 300 MG TAB PO SCH (20:49)
[2021-10-13] MEDS: AMITRIPTYLINE HCL 50 MG TAB PO SCH (20:49)
[2021-10-13] MEDS: HYDROmorphone 0.5 MG/0.5 ML SYRINGE IVP PRN (20:49)
[2021-10-14] MEDS: HYDROmorphone 1 MG/ML 1 ML SYRINGE IVP PRN ×3 (00:20→12:46)
[2021-10-14] MEDS: HYDROcodone/APAP 10-325MG 1 EACH TAB PO PRN ×3 (02:21→17:42)
[2021-10-14] MEDS: LOSARTAN 50 MG TAB PO SCH (07:41)
[2021-10-14] MEDS: SENNOSIDES-DOCUSATE SODIUM 1 EACH TAB PO SCH (07:41)
[2021-10-14] MEDS: TAMSULOSIN 0.4 MG CAP.ER.24H PO SCH ×2 (07:41→19:41)
[2021-10-14] MEDS: amLODIPine 2.5 MG TAB PO SCH (07:41)
[2021-10-14] MEDS: PANTOPRAZOLE 40 MG TABLET PO SCH (07:41)
[2021-10-14] MEDS ORDERED: amLODIPine 2.5 MG TAB PO STA (08:52)
[2021-10-14] MEDS ORDERED: IPRATROPIUM-ALBUTEROL 3 ML NEB INHALATION PRN (08:54)
[2021-10-14] MEDS ORDERED: SENNOSIDES-DOCUSATE SODIUM 1 EACH TAB PO SCH (09:00)
[2021-10-14] MEDS ORDERED: SENNOSIDES-DOCUSATE SODIUM 1 EACH TAB PO ONE (09:00)
--- NOTE | 2021-10-14 09:03 | P.PN ---
Progress Note - Text Progress Note Date: 10/14/21 Orthopedic Spine History of present illness: Patient is a pleasant 61-year-old male who is seen and examined at the bedside following posterior lateral decompression and fusion performed Sunday. Patient states they are doing okay post operatively. He does feel he has been improving since yesterday. He does continue to have significant back pain but has been able to increase his mobility. His left lower extremity radiculopathy has significantly improved postoperatively. He is experiencing some right lower extremity radiculopathy postoperatively. He is planning to work with physical therapy today. His Weinberg catheter has been discontinued this morning. He was not discontinued yesterday as he is having significant difficulty with mobility. He has not voided independently yet this morning. 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 She does state he has a walker at home. Currently does not complain of nausea, vomiting, fever, or chills. Patient states pain has been adequately controlled. Patient is eating without diffi culty but has not had much of an appetite. Nursing states patient is currently on 8 L of high flow due to shallow breathing resulting in low oxygenation. Patient states he feels his breathing has been improving as compared yesterday. He is using the incentive spirometer. Nursing also states they have reach out to medicine and will continue to discuss the patient with them. Patient feels he is able to continue to improve he is hoping to be discharged home tomorrow. Patient is being seen and examined by medicine. Patient's other medical diagnoses include hypertension, hyperlipidemia, BPH, and chronic pain syndrome. Physical Exam Lumbar Fusion: Status post surgical day number 2 Patient is awake, alert, and oriented 3 Vital signs stable Adequate chest excursion with deep inspiration and expiration; currently on 8 L high flow Dorsiflexion, plantarflexion, and extensor hallucis longus positive sustained bilaterally No signs or symptoms of DVT; no calf pain; pneumatic cuffs not currently intact bilateral lower extremities Optifoam dressings are clean, dry, and intact over the lumbar spine and right iliac crest; no erythema, purulence, or signs of infection Neurovascularly intact bilaterally lower extremities Assessment: Status post L3-4 and L4-5 minimally invasive posterior lateral decompression and fusion with transforaminal lumbar interbody fusion Low back pain Lower extremity radiculopathy L3-4 and L4-5 spinal stenosis Lumbar degenerative scoliosis L3-4 and L4-5 severe degenerative disc disease Lumbar facet arthrosis Hypertension Hyperlipidemia BPH Chronic pain syndrome Currently on 8 L high flow for low oxygen saturation most recently at 92 Plan: 1. Ambulate as tolerated; work with Physical Therapy to increase mobilization; patient will continue to utilize a walker to aid in ambulation as needed. Patient has a walker at home. Following discharge patient may use his walker to aid in ambulation as needed. 2. Continue pain control with IV and oral medications; will plan to begin weaning the patient off of IV narcotic medication in anticipation for discharge home in the next 1-2 days. MAPS has been reviewed today, 10/14/2021, with an Overall Overdose Risk Score of 220. An "Opiod Start Talking" Form has been signed and placed in the patient's chart. A prescription has been written for hydrocodone 10 mg/325 mg 1 every 6 hours as needed for pain, dispense #28. Patient should avoid other previously prescribed narcotic medications while taking the new prescription for hydrocodone 10 mg/325 mg. Patient has been taking hydrocodone 10 mg/325 mg during his admission to the hospital without difficulty. Patient is also given prescriptions for cyclobenzaprine 10 mg, take 1 tab 3 t imes a day as needed for muscle spasm, dispensed #60 and Senokot-S, take 1 tab twice a day as needed for constipation, dispensed #60. Medications have been sent to the [facility] pharmacy located within [facility] per the patient's request. Patient should avoid anti-inflammatory medications over the next 6 weeks postoperatively. 3. Dressings to remain intact with Optifoam; patient may shower with dressings intact; dressings may be removed in 3 days and patient may shower without dressing is intact at that time at the surgical sites remained clean, dry, and intact 4. Medical management can continue to manage patient for patient's other medical diagnoses lower postop oxygen saturation, hypertension, hyperlipidemia, BPH, and chronic pain syndrome. 5. We will continue to follow the patient closely; depending on the patient's progress, we may plan for discharge home as early as tomorrow, 10/15/2021 6. Patient can follow-up with Yo Lin PA-C or Dr. Shakir Mariee at [facility] in 2-3 weeks following discharge
--- NOTE | 2021-10-14 09:51 | XR ---
EXAMINATION TYPE: XR chest 1V portable DATE OF EXAM: 10/14/2021 CLINICAL HISTORY: Hypoxia progress study. TECHNIQUE: Single AP portable semiupright view of the chest is obtained. COMPARISON: Chest x-ray from October 04, 2021 FINDINGS: Diminished inspiration with bilateral central increased opacities and some Teresa B lines in the periphery of the left lung. Cardiac silhouette size more prominent measuring upper limits of n ormal. Osseous structures are intact. IMPRESSION: Correlate for CHF exacerbation and/or fluid overload state. New [id number] alveolar and interstitial edema is felt present.
[2021-10-14] MEDS: polyethylene glycoL 3350 17 GM POWD.PACK PO SCH (10:20)
[2021-10-14] MEDS: amLODIPine 5 MG TAB PO SCH (10:21)
[2021-10-14] MEDS: IPRATROPIUM-ALBUTEROL 3 ML NEB INHALATION SCH ×2 (11:41→18:56)
[2021-10-14] MEDS ORDERED: FUROSEMIDE 10 MG/ML 4 ML VIAL IV STA (11:42)
--- NOTE | 2021-10-14 11:47 | P.PN ---
Subjective Progress Note Date: 10/14/21 HISTORY OF PRESENT ILLNESS 61-year-old male one of my office patient with known for over 20 years with past medical history of hypertension hyperlipidemia and gout and BPH who is known to have chronic pain syndrome with chronic degenerative disc disease lumbar spine pain for many years. Patient had working conservative for long time also has known to have history of IBS along with psoriasis and severe GERD post Niesen fundoplication in the past, history of kidney stone as well. patient had developed severe worsening lumbar pain with weakness of the lower extremity along with neuro claudication from the knee down bilaterally with worsening symptom last 3 months. Patient had try conservative management along with pain management was not effective. Patient was scheduled for elective surgery with Dr. Mariee which was done today successfully was admitted to the hospital afterward patient was started on his home meds, he is stable hemodynamically pain is under control at this point. 10/13: [facility] he is lying flat in bed. He is currently on vancomycin. His nasal swab came back positive for MRSA and plan is for discharge on doxycycline for 7 days. Patient states he has not had a bowel movement as of yet. He is having some pain at the surgical site area. Anticipate that he will be up and working with physical therapy today. Patient has been afebrile, heart rate 93, blood pressure 145/75, pulse ox 88-91% on 5 L nasal cannula. CBC reveals WBC 14.0, hemoglobin 10.5, platelet count 285. A lateralized normal. Anion gap 9.8. Creatinine 1.1. Blood sugar 141. AST 87, ALT 58, total protein 5.6. Patient is reaching 2000 on incentive spirometry. 10/14: Patient is an afebrile, heart rate 92, blood pressure 167/93, pulse ox 92% on 8 L high flow nasal cannula. Patient does deny shortness of breath despite being on 8 L. Amlodipine increased to 5 mg daily. Weinberg catheter was discontinued this morning and patient has not voided on his own yet. He states he is passing gas but no bowel movement. He states that he is using incentive spirometry needs to continue this. IV fluids will be discontinued, chest x-ray ordered and nebulizer treatments ordered. Patient is also complaining of constipation probably contributing to his low pulse ox. Senokot increased to twice daily scheduled, MiraLAX added milk of magnesia added. Discharge plan is for tomorrow. Chest x-ray reveals correlate for heart failure exacerbation or fluid overload. New mild to moderate alveolar and interstitial edema is still present. One dose of IV Lasix ordered. REVIEW OF SYSTEMS Constitutional: No fever, no chills, no night sweats. No weight change. No weakness, fatigue or lethargy. No daytime sleepiness. EENT: No headache. No blurred vision or double vision, no loss of vision. No loss of Hearing, no ringing in the ears, no dizziness. No nasal drainage or congestion. No epistaxis. No sore throat. Lungs: No shortness of breath, cough, no sputum production. No wheezing. Cardiovascular: No chest pain, no lower extremity edema. No palpitations. No paroxysmal nocturnal dyspnea. No orthopnea. No lightheadedness or dizziness. No syncopal episodes. Abdominal: No abdominal pain. No nausea, vomiting. No diarrhea. Reports constipation. No bloody or tarry stools.. No loss of appetite. Genitourinary: No dysuria, increased frequency, urgency. No urinary retention. Musculoskeletal: No myalgias. Generalized muscle weakness, no gait dysfunction, no frequent falls. positive lower back pain with incision pain as well. Integumentary: No wounds, no lesions. No rash or pruritus. No unusual bruising. No change in hair or nails. Neurologic: No aphasia. No facial droop. No change in mentation. No head injury. No headache. No paralysis. slight paresthesia from the knee down bilaterally.. Psychiatric: No depression. No anxiety. No mood swings. Endocrine: No abnormal blood sugars. No weight change. No excessive sweating or thirst. No cold intolerance. PHYSICAL EXAMINATION Gen: This is well-developed in no acute respiratory distress.Patient is resting in bed. HEENT: Head is atraumatic, normocephalic. Pupils equal, round. Sclerae is anicteric. NECK: Supple. No JVD. No lymphadenopathy. No thyromegaly. LUNGS: Clear to auscultation. No wheezes or rhonchi. No intercostal retractions. HEART: Regular rate and rhythm. No murmur. ABDOMEN: Soft. Bowel sounds are present. No masses. No tenderness. EXTREMITIES: No pedal edema. No calf tenderness. NEUROLOGICAL: Patient is awake, alert and oriented x3. Cranial nerves 2 through 12 are grossly intact. slight weakness of the lower extremity with mild paresthesia and numbness from the knee down. Lumbar spine: His incision looks fine with no hematoma induration no sign of infection. ASSESSMENT AND PLAN 1.post lumbar laminectomy and decompression of L3-L4, L4-L5. Resume home meds, watch pain and watch patient hemodynamic status carefully.Continue incentive spirometry to reduce incidence of atelectasis and hospital acquired pneumonia. 2 hypertension: We'll resume his amlodipine/LOSARTAN 5/40 MG HALF TABLET DAILY. Amlodipine increased to 5 mg daily. 3 HYPERLIPIDEMIA: HAS BEEN OFF STATIN BECAUSE OF SIDE EFFECTS USING TRICOR AND STATIN PREVIOUSLY. 4 BPH. Weinberg catheter discontinued, monitor for retention, CONTINUE FLOMAX 0.4 MG TWICE A DAY. 5 HISTORY OF RECURRENT GOUT: PATIENT HAS BEEN ON ZYLOPRIM 300 MG DAILY WITH NO FLAREUP LATELY. 6 CHRONIC HISTORY OF MIGRAINE RECURRENT HEADACHE HAS BEEN DOING MUCH BETTER LATELY ON AMITRIPTYLINE 50 MG AT BEDTIME STILL USING HYDROCORTISONE ON FIORICET ON NEEDED BASIS. 7 CHRONIC HISTORY OF GLEZ: WITH SLIGHTLY ABNORMAL LIVER FUNCTION TEST HAS BEEN SLIGHTLY BETTER LATELY PATIENT HAS LOST WEIGHT HIS CHOLESTEROL HAS BEEN BETTER CONTROLLED PATIENT WILL BENEFIT FROM BEING ON PIOGLITAZONE OR METFORMIN EVENTUALLY. 8 CHRONIC PAIN SYNDROME: HAS BEEN ON HYDROCODONE ON AN -NEEDED BASIS. 9 SEVERE GERD POST CIERA FUNDOPLICATION: PATIENT IS STILL USING PPI ON DEMAND RESUME PANTOPRAZOLE AT 40 MG DAILY. 10 DVT PROPHYLAXIS: EARLY MOBILIZATION AND KNEE-HIGH WENDY HOSE WILL BE USE. 11. Nasal swab positive for MRSA. Continue vancomycin and plan for doxycycline at time of discharge. 12. Fluid overload secondary to IV fluid administration. IV fluids discontinued, one dose of IV Lasix 40 mg ordered, continue to encourage incentive spirometry, DuoNeb treatments 3 times daily and as needed and increase activity. 13. Constipation. Senokot increased to 2 scheduled daily, MiraLAX added daily, milk of magnesia as needed. CODE STATUS: FULL CODE. DISCHARGE PLAN Home in the next 24 hours. Impression and plan of care have been directed as dictated by the signing physician. Marychuy Emerson nurse practitioner acting as scribe for signing physician. Objective - Vital Signs Vital signs: Vital Signs Temp 98.0 F 10/14/21 07:56 Pulse 92 10/14/21 07:56 Resp 18 10/14/21 02:00 BP 167/93 10/14/21 07:56 Pulse Ox 92 L 10/14/21 07:56 Intake & Output 10/13/21 10/14/21 10/14/21 18:59 06:59 18:59 Intake Total 1050 Output Total 700 Balance 350 Intake: Intake, IV Titration 600 Amount Sodium Chloride 0.9% 1, 600 000 ml @ 75 mls/hr IV . [id number] [facility] Rx#:[id number] Oral 450 Output: Urine 700 Other: Voiding Method Toilet Indwelling Catheter # Voids 500 - Labs CBC & Chem 7: 10/13/21 05:07 10/13/21 05:07 Labs: Abnormal Lab Results - Last 24 Hours (Table) 10/13/21 10/13/21 Range/Units 05:07 05:07 WBC 14.03 H (4.50-10.00) X 10*3/uL RBC 3.37 L (4.40-5.60) X 10*6/uL Hgb 10.5 L (13.0-17.0) g/dL Hct 31.4 L (39.6-50.0) % Immature Gran # 0.10 H (0.00-0.04) X 10*3/uL Neutrophils # 11.55 H (1.80-7.70) X 10*3/uL Monocytes # 1.21 H (0.20-1.00) X 10*3/uL Eosinophils # 0.03 L (0.04-0.35) X 10*3/uL Anion Gap 9.80 L (10.00-18.00) mmol/L Glucose 141 H (70-110) mg/dL AST 87 H (14-35) U/L ALT 58 H (10-49) U/L Total Protein 5.6 L (6.2-8.2) g/dL
[2021-10-14] MEDS: allopurinoL 300 MG TAB PO SCH (19:41)
[2021-10-14] MEDS: AMITRIPTYLINE HCL 50 MG TAB PO SCH (19:41)
[2021-10-14] MEDS: LACTATED RINGERS 1,000 ML IV SCH (22:01)
[2021-10-15] MEDS: HYDROcodone/APAP 10-325MG 1 EACH TAB PO PRN ×4 (00:10→22:13)
[2021-10-15] MEDS: CYCLOBENZAPRINE 10 MG TAB PO PRN (00:10)
[2021-10-15] MEDS: IPRATROPIUM-ALBUTEROL 3 ML NEB INHALATION SCH ×3 (08:11→19:57)
[2021-10-15] MEDS: LOSARTAN 50 MG TAB PO SCH (08:50)
[2021-10-15] MEDS: TAMSULOSIN 0.4 MG CAP.ER.24H PO SCH ×2 (08:50→19:52)
[2021-10-15] MEDS: PANTOPRAZOLE 40 MG TABLET PO SCH (08:50)
[2021-10-15] MEDS: amLODIPine 5 MG TAB PO SCH (08:50)
[2021-10-15] MEDS: SENNOSIDES-DOCUSATE SODIUM 1 EACH TAB PO SCH (08:50)
[2021-10-15] MEDS: polyethylene glycoL 3350 17 GM POWD.PACK PO SCH (08:50)
--- NOTE | 2021-10-15 09:18 | XR ---
EXAMINATION TYPE: XR chest 1V portable DATE OF EXAM: 10/15/2021 CLINICAL HISTORY: Difficulty breathing progress study. TECHNIQUE: Single AP portable supine view of the chest is obtained. COMPARISON: Chest x-ray from one day earlier and older studies. FINDINGS: Diminished inspiration with improved central increased opacities and some right basilar op acity redemonstrated. Cardiac silhouette size measures within normal limits. Osseous structures are i ntact. IMPRESSION: Improved bilateral interstitial and central edema. Developing right basilar acute infiltr ate and/or atelectasis noted.
[2021-10-15 09:40] LABS: HCT 32.1 % (39.6-50.0); HGB 10.5 g/dL (13.0-17.0); MCH 30.7 pg (27.0-32.0); MCHC 32.7 g/dL (32.0-37.0); MCV 93.9 fL (80.0-97.0); Mean Platelet Volume 10.4 fL (9.5-12.2); NRBC Per 100 WBC 0 /100 WBCS (0.0-0.0); Platelet Count 282 X 10*3/uL (140-440); RBC 3.42 X 10*6/uL (4.40-5.60); RDW 12.9 % (11.5-14.5)
--- NOTE | 2021-10-15 09:40 | P.PN ---
Subjective Progress Note Date: 10/15/21 Principal diagnosis: Laminectomy Patient suffered from respiratory failure with hypoxia was started on 2 L nasal cannula and that was advanced during the night and currently on 9 L high flow with oxygen saturation 96%. Patient in mild to moderate distress using accessory muscles with composition but still able to finish a sentence. Patient denied being on oxygen before laying flat in bed and denying any history of edema or heart failure. Patient had low-grade fever 100.5 and that was responsive to Tylenol Objective - Vital Signs Vital signs: Vital Signs Temp 98.3 F 10/15/21 07:37 Pulse 105 H 10/15/21 08:21 Resp 17 10/15/21 07:37 BP 154/83 10/15/21 07:37 Pulse Ox 94 L 10/15/21 08:15 Intake & Output 10/14/21 10/15/21 10/15/21 18:59 06:59 18:59 Intake Total 725 Output Total 1000 1800 Balance -275 -1800 Intake: Intake, IV Titration 225 Amount Sodium Chloride 0.9% 1, 225 000 ml @ 75 mls/hr IV . [id number] [facility] Rx#:[id number] Oral 500 Output: Urine 1000 1800 Other: Voiding Method Indwelling Catheter Urinal # Voids 3 1 - Exam Gen.: in stated age, no acute distress Heart: Normal S1-S2 Lungs: Diminished bilaterally with decreased air entry Abdomen: Soft, no tenderness, positive bowel sounds in all 4 quadrant no guarding or rebound Skin: No new rash Psych: Alert and oriented 3 Neuro: No focal deficit - Labs CBC & Chem 7: 10/13/21 05:07 10/13/21 05:07 Assessment and Plan Assessment: 1. Acute respiratory failure with hypoxia. 2. New onset low-grade fever. 3. Dehydration on physical examination. 4. Status post lumbar laminectomy and decompression of L3-L4, L4-L5. 5. Hypertension. 6. Hyperlipidemia. 7. BPH. 8. Gout. 9. Migraine headache. 10. Ortiz. 11. Intractable pain and muscle spasm. 12. GERD status post Gelacio fundoplication. Stat chest x-ray was ordered and revealed developing right lower lobe pneumonia, patient is febrile with quick onset of hypoxia in the hospital setting etiology could be related to infectious versus aspiration. I would like to wait on influenza panel and call with 19 panel every dose are negative and pro-Miah is elevated I would like to start patient on empiric treatment with Rocephin and Zi thromax for community-acquired pneumonia, continue aggressive pulmonary hygiene, continue high flow nasal cannula and wean off as tolerated. Avoid diuretics at this point as patient seems to be intravascularly depleted and encourage oral intake. Monitor hemodynamic closely and continue with current pain management and DVT prophylaxis per primary team recommendation. Prognosis is guarded at this point
[2021-10-15 10:01] LABS: African American GFR (CKD) 117.2 (60.0-200.0); Albumin 3.6 g/dL (3.8-4.9); Albumin/Globulin Ratio 1.8 (1.60-3.17); Anion Gap 12.1 mmol/L (10.00-18.00); BUN/Creat Ratio 14.14 Ratio (12.00-20.00); Blood Urea Nitrogen 9.9 mg/dL (9.0-27.0); Calcium 9.3 mg/dL (8.7-10.3); Carbon Dioxide 26.9 mmol/L (20.0-27.5); Non-African American GFR(CKD) 101.1 (60.0-200.0); Potassium 3.9 mmol/L (3.5-5.5); Total Bilirubin 0.7 mg/dL (0.30-1.20); Total Protein 5.6 g/dL (6.2-8.2)
[2021-10-15] MEDS: SODIUM CHLORIDE 0.9% 1,000 ML IV SCH (10:05)
[2021-10-15] MEDS: LACTATED RINGERS 1,000 ML IV SCH (10:06)
[2021-10-15] MEDS: PIPERACILLIN-TAZOBACTAM 3.375 GM in SODIUM CHLORIDE 0.9% 100 ML IVPB SCH ×3 (10:26→23:42)
--- NOTE | 2021-10-15 11:20 | P.CNPUL ---
History of Present Illness Consult date: 10/15/21 Requesting physician: Jacinda López Reason for consult: dyspnea, hypoxemia, abnormal CXR/CT Chief complaint: Back pain History of present illness: This is a very pleasant 61-year-old male patient with a history of hypertension, BPH, hyperlipidemia, gout, GLEZ, irritable bowel syndrome, psoriasis and severe GERD status post Gelacio fundoplication and back pain. He was brought in electively on 10/12/2021 for spinal stenosis status post laminectomy and decompression of L3-4, L4-5. He had been recovering when he developed increasing shortness of breath, cough and congestion. Yesterday's chest x-ray revealed congestive heart failure and fluid volume overload with new mild to moderate alveolar and interstitial edema. He was given Lasix 40 mg IVP 1. White count 12.6. Hemoglobin 10.5. Sodium 1:30. Potassium 3.9. BUN 9.9. Creatinine 0.7. Glucose 131. AST 64. ALT 50. Coronavirus by PCR not detected. Influenza screen negative. Today's chest x-ray revealed improved bilateral interstitial and central edema. There is developing right basilar acute infiltrate/atelectasis. We're consulted for the same. He is seen today on the regular medical floor. Currently resting fairly comfortably in bed. Awake and alert in no acute distress. Maintaining O2 saturations in the 90s on 9 L high flow nasal cannula now. He does have a productive cough of yellow sputum. He is a lifelong nonsmoker. He's been initiated on Zosyn. Encouraged regarding the use of the incentive spirometer and cough and deep breathing exercises. Review of Systems REVIEW OF SYSTEMS: CONSTITUTIONAL: Denies any recent significant weight loss or weight gain. EYES: Denies change in vision. EARS, NOSE, MOUTH, THROAT: Denies headaches, denies sore throat. CARDIOVASCULAR: Denies chest pain, palpitations or syncopal episodes. RESPIRATORY: Positive for shortness of breath, cough, congestion no hemoptysis. GASTROINTESTINAL: Denies change in appetite, denies abdominal pain GENITOURINARY: Denies hematuria, denies infections. MUSKULOSKELETAL: Positive for postsurgical back pain INTEGUMENTARY: Denies rash, denies eczema. NEUROLOGICAL: Denies recent memory loss, no recent seizure activity. PSYCHIATRIC: Denies anxiety, denies depression. HEMATOLOGIC/LYMPHATIC: Denies anemia, denies enlarged lymph nodes. Past Medical History Past Medical History: GERD/Reflux, Hyperlipidemia, Hypertension, Pneumonia, Skin Disorder Additional Past Medical History / Comment(s): "HYPOGLYCEMIA. IBS. PSORIASIS TO EAR AND SCALP. Acid reflux resolved since Gelacio Fundoplasty. Hx kidney stones. Hx Gout. History of Any Multi-Drug Resistant Organisms: None Reported Past Surgical History: Appendectomy, Hernia Repair, Orthopedic Surgery Additional Past Surgical History / Comment(s): ORIF LEFT KNEE X2, exploratoy surgery prior to appendectomy, I&D OF APPENDECTOMY INCISION, surgery for septal deviation, testicular biopsy, hydrocele surgery, ganglion cysts removed from the left finger and left foot, Gelacio Fundoplasty. Past Anesthesia/Blood Transfusion Reactions: No Reported Reaction Past Psychological History: No Psychological Hx Reported Smoking Status: Never smoker Past Alcohol Use History: None Reported Past Drug Use History: None Reported - Past Family History Mother Family Medical History: CVA/TIA, GERD/Reflux, Hyperlipidemia, Hypertension Father Family Medical History: Cancer, GERD/Reflux, Hyperlipidemia, Hypertension, Memory Impairment Additional Family Medical History / Comment(s): Skin cancer. Brother(s) Family Medical History: No Reported History Son(s) Family Medical History: No Reported History Medications and Allergies Home Medications Medication Instructions Recorded Confirmed Type Amitriptyline HCl 50 mg PO HS 06/11/14 10/10/21 History amLODIPine BES/OLMESARTAN MED 0.5 tab PO QAM 07/29/14 10/10/21 History [Yoel 5-40 mg Tablet] Allopurinol [Zyloprim] 300 mg PO HS 10/10/21 10/10/21 History HYDROcodone/APAP 7.5-325MG [[place] 1 tab PO Q8H PRN 10/10/21 10/10/21 History 7.5-325] Ibuprofen [Advil] 200 mg PO Q8HR PRN 10/10/21 10/10/21 History Magnesium (Unknown Dose) 1 tab PO DAILY 10/10/21 History Potassium Gluconate [Potassium 99 mg PO DAILY 10/10/21 10/10/21 History Gluconate ER] Tamsulosin [Flomax] 0.4 mg PO BID 10/10/21 10/10/21 History Tart Alfonso 1,000 mg PO DAILY 10/10/21 History Doxycycline [Vibramycin] 100 mg PO BID 10 Days #14 capsule 10/13/21 Rx Cyclobenzaprine [Flexeril] 10 mg PO TID PRN #60 tab 10/14/21 Rx HYDROcodone/APAP 10-325MG [[place] 1 each PO Q6H PRN #28 tab 10/14/21 Rx 10] Sennosides-Docusate Sodium 1 tab PO BID PRN #60 tablet 10/14/21 Rx [Senokot-S] Allergies Allergy/AdvReac Type Severity Reaction Status Date / Time morphine AdvReac Swelling Verified 10/10/21 14:34 Physical Exam Vitals: Vital Signs Temp Pulse Pulse Resp BP Pulse Ox 10/15/21 08:21 105 H 10/15/21 08:15 94 L 10/15/21 08:11 100 10/15/21 07:37 98.3 F 99 17 154/83 94 L 10/15/21 01:57 98.8 F 100 18 152/85 94 L 10/14/21 20:25 99.3 F 10/14/21 20:00 110 H 20 10/14/21 19:57 100.5 F H 110 H 20 153/76 94 L 10/14/21 19:40 99.9 F H 104 H 17 161/85 93 L 10/14/21 19:04 106 H 10/14/21 18:56 104 H 10/14/21 14:00 98.7 F 101 H 139/72 94 L 10/14/21 11:52 90 10/14/21 11:41 93 Intake and Output 10/14/21 10/15/21 10/15/21 22:59 06:59 14:59 Intake Total 725 Output Total 1400 1400 Balance -675 -1400 Intake: Intake, IV Titration 225 Amount Sodium Chloride 0.9% 1, 225 000 ml @ 75 mls/hr IV . [id number] [facility] Rx#:[id number] Oral 500 Output: Urine 1400 1400 Other: Voiding Method Urinal # Voids 1 GENERAL EXAM: Alert, pleasant 61-year-old male patient, on 9 L high flow nasal cannula, fairly comfortable in no apparent distress. HEAD: Normocephalic. EYES: Normal reaction of pupils, equal size. NOSE: Clear with pink turbinates. THROAT: No erythema or exudates. NECK: No masses, no JVD. CHEST: No chest wall deformity. LUNGS: Equal air entry with crackles in the bilateral bases right greater than left. CVS: S1 and S2 normal with no audible murmur, regular rhythm. ABDOMEN: No hepatosplenomegaly, normal bowel sounds, no guarding or rigidity. SPINE: Surgical dressing is dry and intact SKIN: No rashes CENTRAL NERVOUS SYSTEM: No focal deficits, tone is normal in all 4 extremities. EXTREMITIES: There is no peripheral edema. No clubbing, no cyanosis. Peripheral pulses are intact. Results - Laboratory Findings CBC and BMP: 10/15/21 04:29 10/15/21 04:29 Abnormal lab findings: Abnormal Labs 10/13/21 10/13/21 10/15/21 05:07 05:07 04:29 WBC 14.03 H 12.60 H RBC 3.37 L 3.42 L Hgb 10.5 L 10.5 L Hct 31.4 L 32.1 L Immature Gran # 0.10 H Neutrophils # 11.55 H Monocytes # 1.21 H Eosinophils # 0.03 L Anion Gap 9.80 L Glucose 141 H AST 87 H ALT 58 H Total Protein 5.6 L Albumin 10/15/21 04:29 WBC RBC Hgb Hct Immature Gran # Neutrophils # Monocytes # Eosinophils # Anion Gap Glucose 131 H AST 64 H ALT 50 H Total Protein 5.6 L Albumin 3.6 L - Diagnostic Findings Chest x-ray: image reviewed Assessment and Plan Assessment: 1 Back pain status post L34 and L4-5 minimally invasive posterior lateral deco mpression and fusion with transforaminal lumbar interbody fusion. Postoperative day #3. 2 Acute hypoxemic respiratory failure, an expected outcome of surgery, suspect aspiration pneumonia and fluid volume overload 3 Chronic pain syndrome 4 Hypertension 5 Hyperlipidemia 6 BPH 7 History of gout 8 GLEZ 9 History of severe gastroesophageal reflux disease, status post Jeffry fundoplication Plan: The patient was seen and evaluated Chest x-ray and labs reviewed Initiated on Zosyn, bronchodilators Received Lasix yesterday Titrate down the FiO2 as tolerated Increased use of the incentive spirometer Increase his activity as tolerated We will continue to follow and make further recommendations based on his clinical status I have personally seen and examined the patient, performed the documentation and the assessment and plan as written. Number of minutes spent on the visit: 20.
[2021-10-15] MEDS: AMITRIPTYLINE HCL 50 MG TAB PO SCH (19:52)
[2021-10-15] MEDS: allopurinoL 300 MG TAB PO SCH (19:52)
[2021-10-15] MEDS: MAGNESIUM HYDROXIDE 2,400 MG/10 ML CUP PO PRN (19:58)
[2021-10-16] MEDS: HYDROcodone/APAP 10-325MG 1 EACH TAB PO PRN ×4 (04:21→23:31)
[2021-10-16] MEDS: PIPERACILLIN-TAZOBACTAM 3.375 GM in SODIUM CHLORIDE 0.9% 100 ML IVPB SCH ×3 (08:04→23:25)
[2021-10-16] MEDS: SENNOSIDES-DOCUSATE SODIUM 1 EACH TAB PO SCH (08:04)
[2021-10-16] MEDS: polyethylene glycoL 3350 17 GM POWD.PACK PO SCH (08:04)
[2021-10-16] MEDS: TAMSULOSIN 0.4 MG CAP.ER.24H PO SCH ×2 (08:05→19:30)
[2021-10-16] MEDS: PANTOPRAZOLE 40 MG TABLET PO SCH (08:05)
[2021-10-16] MEDS: amLODIPine 5 MG TAB PO SCH (08:05)
[2021-10-16] MEDS: LOSARTAN 50 MG TAB PO SCH (08:05)
[2021-10-16] MEDS: IPRATROPIUM-ALBUTEROL 3 ML NEB INHALATION SCH ×3 (08:10→20:28)
[2021-10-16] MEDS: LACTATED RINGERS 1,000 ML IV SCH (09:37)
[2021-10-16 09:39] LABS: HCT 30.9 % (39.6-50.0); HGB 10.3 g/dL (13.0-17.0); MCH 30.7 pg (27.0-32.0); MCHC 33.3 g/dL (32.0-37.0); Mean Platelet Volume 9.9 fL (9.5-12.2); NRBC Per 100 WBC 0 /100 WBCS (0.0-0.0); Platelet Count 336 X 10*3/uL (140-440); RBC 3.36 X 10*6/uL (4.40-5.60); RDW 12.9 % (11.5-14.5); WBC 8.49 X 10*3/uL (4.50-10.00)
[2021-10-16 09:44] LABS: African American GFR (CKD) 117.2 (60.0-200.0); Albumin 3.4 g/dL (3.8-4.9); Albumin/Globulin Ratio 1.62 (1.60-3.17); Anion Gap 10.4 mmol/L (10.00-18.00); Blood Urea Nitrogen 9.1 mg/dL (9.0-27.0); Calcium 8.7 mg/dL (8.7-10.3); Carbon Dioxide 27.6 mmol/L (20.0-27.5); Globulin 2.1 g/dL (1.6-3.3); Non-African American GFR(CKD) 101.1 (60.0-200.0); Potassium 3.8 mmol/L (3.5-5.5); Total Bilirubin 0.8 mg/dL (0.30-1.20); Total Protein 5.5 g/dL (6.2-8.2)
--- NOTE | 2021-10-16 10:47 | P.PN ---
Subjective Progress Note Date: 10/15/21 Principal diagnosis: Status post L3 to L5 decompression and fusion Patient is a pleasant 61-year-old male seen at bedside this morning. He is status post L3 to L5 decompression and fusion. He has pain at the surgical site as expected. He denies any new radicular complaints. He denies new numbness, saddle anesthesia, loss of bowel or bladder control, headaches or other. Objective - Vital Signs Vital signs: Vital Signs Temp 98.3 F 10/15/21 07:37 Pulse 105 H 10/15/21 08:21 Resp 17 10/15/21 07:37 BP 154/83 10/15/21 07:37 Pulse Ox 94 L 10/15/21 08:15 Intake & Output 10/14/21 10/15/21 10/15/21 18:59 06:59 18:59 Intake Total 725 Output Total 1000 1800 Balance -275 -1800 Intake: Intake, IV Titration 225 Amount Sodium Chloride 0.9% 1, 225 000 ml @ 75 mls/hr IV . [id number] [facility] Rx#:[id number] Oral 500 Output: Urine 1000 1800 Other: Voiding Method Indwelling Catheter Urinal # Voids 3 1 - Exam Inspection of the lumbar spine shows bandages intact with no evidence of bleeding or drainage. There is no erythema or fluid collection. The lower extremities are grossly intact with motor and sensation throughout equally bilaterally. Calves are soft and nontender. 2+ dorsalis pedis pulse and less than 2 second capillary refill is present. - Constitutional General appearance: Present: no acute distress - Labs CBC & Chem 7: 10/16/21 04:54 10/16/21 04:54 Labs: Abnormal Lab Results - Last 24 Hours (Table) 10/15/21 10/15/21 Range/Units 04:29 04:29 WBC 12.60 H (4.50-10.00) X 10*3/uL RBC 3.42 L (4.40-5.60) X 10*6/uL Hgb 10.5 L (13.0-17.0) g/dL Hct 32.1 L (39.6-50.0) % Glucose 131 H (70-110) mg/dL AST 64 H (14-35) U/L ALT 50 H (10-49) U/L Total Protein 5.6 L (6.2-8.2) g/dL Albumin 3.6 L (3.8-4.9) g/dL Assessment and Plan (1) S/P lumbar fusion Narrative/Plan: He'll continue with routine postop orthopedic protocol including pain neil gement, physical therapy, wound care, DVT prophylaxis and medical management. Expect that he will be discharged to home in the next 1-2 days. Current Visit: Yes Status: Acute Priority: Medium Code(s): Z98.1 - ARTHRODESIS STATUS SNOMED Code(s): 85000714324402 Time with Patient: Less than 30
--- NOTE | 2021-10-16 12:05 | P.PN ---
Subjective Progress Note Date: 10/16/21 Principal diagnosis: Status post L3 to L5 decompression and fusion Patient is a pleasant 61-year-old male seen at bedside this morning. He is status post L3 to L5 decompression and fusion on 10/12/21. He has pain at the surgical site as expected. He denies any new radicular complaints. He has been seen by pulmonology for atelectasis, SOB, possible aspiration pnuemonia and flu id overload. He feels it is improving soem today. He denies new numbness, saddle anesthesia, loss of bowel or bladder control, headaches or other. Objective - Vital Signs Vital signs: Vital Signs Temp 99 F 10/16/21 07:42 Pulse 93 10/16/21 08:25 Resp 18 10/16/21 07:42 BP 117/77 10/16/21 07:42 Pulse Ox 97 10/16/21 07:42 Intake & Output 10/15/21 10/16/21 10/16/21 18:59 06:59 18:59 Output Total 800 1000 Balance -800 -1000 Output: Urine 800 1000 Other: Voiding Method Urinal # Voids 1 - Exam Inspection of the lumbar spine shows bandages intact with no evidence of bleeding or drainage. There is no erythema or fluid collection. The lower extremities are grossly intact with motor and sensation throughout equally bilaterally. Calves are soft and nontender. 2+ dorsalis pedis pulse and less than 2 second capillary refill is present. - Constitutional General appearance: Present: no acute distress - Labs CBC & Chem 7: 10/16/21 04:54 10/16/21 04:54 Labs: Abnormal Lab Results - Last 24 Hours (Table) 10/16/21 10/16/21 Range/Units 04:54 04:54 RBC 3.36 L (4.40-5.60) X 10*6/uL Hgb 10.3 L (13.0-17.0) g/dL Hct 30.9 L (39.6-50.0) % Carbon Dioxide 27.6 H (20.0-27.5) mmol/L Glucose 123 H (70-110) mg/dL AST 73 H (14-35) U/L ALT 68 H (10-49) U/L Total Protein 5.5 L (6.2-8.2) g/dL Albumin 3.4 L (3.8-4.9) g/dL Assessment and Plan (1) S/P lumbar fusion Narrative/Plan: He'll continue with routine postop orthopedic protocol including pain management, physical therapy, wound care, DVT prophylaxis and medical management. He is also being managed by pulmonology for respiratory. he may be discharged to home when cleared by pulmonolgist and IM which would expect in next few days. Current Visit: Yes Status: Acute Priority: Medium Code(s): Z98.1 - ARTHRODESIS STATUS SNOMED Code(s): 92763364244113 Time with Patient: Less than 30
--- NOTE | 2021-10-16 13:20 | P.PN ---
Subjective Progress Note Date: 10/16/21 This is a very pleasant 61-year-old male patient with a history of hypertension, BPH, hyperlipidemia, gout, GLEZ, irritable bowel syndrome, psoriasis and severe GERD status post Gelacio fundoplication and back pain. He was brought in electively on 10/12/2021 for spinal stenosis status post laminectomy and decompression of L3-4, L4-5. He had been recovering when he developed increasing shortness of breath, cough and congestion. Yesterday's chest x-ray revealed congestive heart failure and fluid volume overload with new mild to moderate alveolar and interstitial edema. He was given Lasix 40 mg IVP 1. White count 12.6. Hemoglobin 10.5. Sodium 1:30. Potassium 3.9. BUN 9.9. Creatinine 0.7. Glucose 131. AST 64. ALT 50. Coronavirus by PCR not detected. Influenza screen negative. Today's chest x-ray revealed improved bilateral interstitial and central edema. There is developing right basilar acute infiltrate/atelectasis. We're consulted for the same. He is seen today on the regular medical floor. Currently resting fairly comfortably in bed. Awake and alert in no acute distress. Maintaining O2 saturations in the 90s on 9 L high flow nasal cannula now. He does have a productive cough of yellow sputum. He is a lifelong nonsmoker. He's been initiated on Zosyn. Encouraged regarding the use of the incentive spirometer and cough and deep breathing exercises. The patient is seen today 10/16/2021 in follow-up on the regular medical floor. He is awake and alert in no acute distress. He is maintaining O2 saturation in the 90s on 7 L high flow nasal cannula. He is working well with the incentive spirometer. White count 8.4. Hemoglobin 10.3. Sodium 137. Potassium 3.8. BUN 9. Creatinine 0.7. He remains on DuoNeb inhalations, antibiotics in the form of Zosyn. Up ambulating with assistance and a walker. Objective - Vital Signs Vital signs: Vital Signs Temp 99 F 10/16/21 07:42 Pulse 93 10/16/21 08:25 Resp 18 10/16/21 07:42 BP 117/77 10/16/21 07:42 Pulse Ox 97 10/16/21 07:42 Intake & Output 10/15/21 10/16/21 10/16/21 18:59 06:59 18:59 Output Total 800 1000 Balance -800 -1000 Output: Urine 800 1000 Other: Voiding Method Urinal # Voids 1 - Exam GENERAL EXAM: Alert, pleasant 61-year-old male patient, on 7 L high flow nasal cannula, fairly comfortable in no apparent distress. HEAD: Normocephalic. EYES: Normal reaction of pupils, equal size. NOSE: Clear with pink turbinates. THROAT: No erythema or exudates. NECK: No masses, no JVD. CHEST: No chest wall deformity. LUNGS: Equal air entry with crackles in the bilateral bases right greater than left. CVS: S1 and S2 normal with no audible murmur, regular rhythm. ABDOMEN: No hepatosplenomegaly, normal bowel sounds, no guarding or rigidity. SPINE: Surgical dressing is dry and intact SKIN: No rashes CENTRAL NERVOUS SYSTEM: No focal deficits, tone is normal in all 4 extremities. EXTREMITIES: There is no peripheral edema. No clubbing, no cyanosis. Peripheral pulses are intact. - Labs CBC & Chem 7: 10/16/21 04:54 10/16/21 04:54 Labs: Abnormal Lab Results - Last 24 Hours (Table) 10/16/21 10/16/21 Range/Units 04:54 04:54 RBC 3.36 L (4.40-5.60) X 10*6/uL Hgb 10.3 L (13.0-17.0) g/dL Hct 30.9 L (39.6-50.0) % Carbon Dioxide 27.6 H (20.0-27.5) mmol/L Glucose 123 H (70-110) mg/dL AST 73 H (14-35) U/L ALT 68 H (10-49) U/L Total Protein 5.5 L (6.2-8.2) g/dL Albumin 3.4 L (3.8-4.9) g/dL Assessment and Plan Assessment: 1 Back pain status post L34 and L4-5 minimally invasive posterior lateral decompression and fusion with transforaminal lumbar interbody fusion. Postoperative day #4. 2 Acute hypoxemic respiratory failure, unexpected outcome of surgery, suspect aspiration pneumonia and fluid volume overload 3 Chronic pain syndrome 4 Hypertension 5 Hyperlipidemia 6 BPH 7 History of gout 8 GLEZ 9 History of severe gastroesophageal reflux disease, status post Jeffry fundoplication Plan: The patient was seen and evaluated Medications and labs reviewed Continued on Zosyn, bronchodilators Titrate down the FiO2 as tolerated Increased use of the incentive spirometer Increase his activity as tolerated Follow-up chest x-ray in a.m. We will continue to follow I have personally seen and examined the patient, performed the documentation and the assessment and plan as written. Number of minutes spent on the visit: 10.
--- NOTE | 2021-10-16 13:32 | P.PN ---
Subjective Progress Note Date: 10/16/21 Principal diagnosis: Laminectomy Patient overnight was weaned off to 5 L high flow nasal cannula currently complaining of stuffy nose and dryness in the airways. Patient feels improved stated he was able to walk to the bathroom with a walker and assistance and was able to sit up in chair but still short of breath with activities. Patient is tolerating diet denying chest pain nausea vomiting about pain dizziness lightheadedness or blurry vision Objective - Vital Signs Vital signs: Vital Signs Temp 99 F 10/16/21 07:42 Pulse 93 10/16/21 08:25 Resp 18 10/16/21 07:42 BP 117/77 10/16/21 07:42 Pulse Ox 97 10/16/21 07:42 Intake & Output 10/15/21 10/16/21 10/16/21 18:59 06:59 18:59 Output Total 800 1000 Balance -800 -1000 Output: Urine 800 1000 Other: Voiding Method Urinal # Voids 1 - Exam Gen.: in stated age, no acute distress Heart: Normal S1-S2 Lungs: Diminished bilaterally with decreased air entry Abdomen: Soft, no tenderness, positive bowel sounds in all 4 quadrant no guarding or rebound Skin: No new rash Psych: Alert and oriented 3 Neuro: No focal deficit - Labs CBC & Chem 7: 10/16/21 04:54 10/16/21 04:54 Labs: Abnormal Lab Results - Last 24 Hours (Table) 10/16/21 10/16/21 Range/Units 04:54 04:54 RBC 3.36 L (4.40-5.60) X 10*6/uL Hgb 10.3 L (13.0-17.0) g/dL Hct 30.9 L (39.6-50.0) % Carbon Dioxide 27.6 H (20.0-27.5) mmol/L Glucose 123 H (70-110) mg/dL AST 73 H (14-35) U/L ALT 68 H (10-49) U/L Total Protein 5.5 L (6.2-8.2) g/dL Albumin 3.4 L (3.8-4.9) g/dL Assessment and Plan Assessment: 1. Acute respiratory failure with hypoxia. 2. New onset low-grade fever. 3. Dehydration on physical examination. 4. Status post lumbar laminectomy and decompression of L3-L4, L4-L5. 5. Hypertension. 6. Hyperlipidemia. 7. BPH. 8. Gout. 9. Migraine headache. 10. Ortiz. 11. Intractable pain and muscle spasm. 12. GERD status post Gelacio fundoplication. Influenza and coronavirus panel both negative, white blood count has improved quickly, fever is resolving and oxygen demand is improving etiology likely related to aspiration pneumonia related to recent surgery and I would like to c ontinue with Zosyn at this point and said her switching to Augmentin at the time of the discharge once patient is on the lower value of oxygen. We will continue with aggressive pulmonary hygiene, consider repeating x-ray in the morning based on clinical progress, encourage oral intake and continue gentle hydration at this point as patient still seems to be intravascularly depleted.
[2021-10-16] MEDS: MAGNESIUM HYDROXIDE 2,400 MG/10 ML CUP PO PRN (17:13)
[2021-10-16] MEDS: AMITRIPTYLINE HCL 50 MG TAB PO SCH (19:30)
[2021-10-16] MEDS: allopurinoL 300 MG TAB PO SCH (19:30)
[2021-10-17] MEDS: HYDROcodone/APAP 10-325MG 1 EACH TAB PO PRN ×2 (06:07→12:36)
[2021-10-17] MEDS: LOSARTAN 50 MG TAB PO SCH (07:12)
[2021-10-17] MEDS: TAMSULOSIN 0.4 MG CAP.ER.24H PO SCH (07:12)
[2021-10-17] MEDS: polyethylene glycoL 3350 17 GM POWD.PACK PO SCH ×2 (07:12→07:13)
[2021-10-17] MEDS: amLODIPine 5 MG TAB PO SCH (07:12)
[2021-10-17] MEDS: SENNOSIDES-DOCUSATE SODIUM 1 EACH TAB PO SCH (07:12)
[2021-10-17] MEDS: PANTOPRAZOLE 40 MG TABLET PO SCH (07:13)
[2021-10-17] MEDS: PIPERACILLIN-TAZOBACTAM 3.375 GM in SODIUM CHLORIDE 0.9% 100 ML IVPB SCH ×2 (07:13→15:31)
[2021-10-17 07:19] VITALS: RESP 16
[2021-10-17] MEDS: IPRATROPIUM-ALBUTEROL 3 ML NEB INHALATION SCH ×2 (07:50→11:51)
--- NOTE | 2021-10-17 08:18 | XR ---
EXAMINATION TYPE: XR chest 1V portable DATE OF EXAM: 10/17/2021 COMPARISON: X-ray dated 10/15/2021 HISTORY: Pneumonia TECHNIQUE: Single frontal view of the chest is obtained. FINDINGS: [id number] right-sided pleural effusion with suspected adjacent atelectasis. Associated pneumo sara cannot be excluded. Grossly unremarkable remainder of the lungs. No left-sided pleural effusion. No definite pneumothorax. Unchanged cardiomediastinal silhouette and bony thoracic cage. IMPRESSION: As above.
--- NOTE | 2021-10-17 11:19 | P.PN ---
Subjective Progress Note Date: 10/17/21 HISTORY OF PRESENT ILLNESS 61-year-old male one of my office patient with known for over 20 years with past medical history of hypertension hyperlipidemia and gout and BPH who is known to have chronic pain syndrome with chronic degenerative disc disease lumbar spine pain for many years. Patient had working conservative for long time also has known to have history of IBS along with psoriasis and severe GERD post Niesen fundoplication in the past, history of kidney stone as well. patient had developed severe worsening lumbar pain with weakness of the lower extremity along with neuro claudication from the knee down bilaterally with worsening symptom last 3 months. Patient had try conservative management along with pain management was not effective. Patient was scheduled for elective surgery with Dr. Mariee which was done today successfully was admitted to the hospital afterward patient was started on his home meds, he is stable hemodynamically pain is under control at this point. 10/13: [facility] he is lying flat in bed. He is currently on vancomycin. His nasal swab came back positive for MRSA and plan is for discharge on doxycycline for 7 days. Patient states he has not had a bowel movement as of yet. He is having some pain at the surgical site area. Anticipate that he will be up and working with physical therapy today. Patient has been afebrile, heart rate 93, blood pressure 145/75, pulse ox 88-91% on 5 L nasal cannula. CBC reveals WBC 14.0, hemoglobin 10.5, platelet count 285. A lateralized normal. Anion gap 9.8. Creatinine 1.1. Blood sugar 141. AST 87, ALT 58, total protein 5.6. Patient is reaching 2000 on incentive spirometry. 10/14: Patient is an afebrile, heart rate 92, blood pressure 167/93, pulse ox 92% on 8 L high flow nasal cannula. Patient does deny shortness of breath despite being on 8 L. Amlodipine increased to 5 mg daily. Weinberg catheter was discontinued this morning and patient has not voided on his own yet. He states he is passing gas but no bowel movement. He states that he is using incentive spirometry needs to continue this. IV fluids will be discontinued, chest x-ray ordered and nebulizer treatments ordered. Patient is also complaining of constipation probably contributing to his low pulse ox. Senokot increased to twice daily scheduled, MiraLAX added milk of magnesia added. Discharge plan is for tomorrow. Chest x-ray reveals correlate for heart failure exacerbation or fluid overload. New mild to moderate alveolar and interstitial edema is still present. One dose of IV Lasix ordered. 10/17: Patient has been seen over the weekend by pulmonary medicine, currently on Zosyn for suspected aspiration pneumonia. Repeat chest x-ray reveals small to moderate right-sided pleural effusion with suspected adjacent atelectasis. Associated pneumonia cannot be excluded. Grossly unremarkable remainder of the lungs. Pulse ox is at 95% on 2 L. We have discontinued oxygen therapy and nursing to check for home oxygen need. Patient is anticipating discharge home today. We will order CT of the chest to rule out pulmonary embolism. If this is negative, patient is cleared from medicine for discharge home. REVIEW OF SYSTEMS Constitutional: No fever, no chills, no night sweats. No weight change. No weakness, fatigue or lethargy. No daytime sleepiness. EENT: No headache. No blurred vision or double vision, no loss of vision. No l oss of Hearing, no ringing in the ears, no dizziness. No nasal drainage or congestion. No epistaxis. No sore throat. Lungs: No shortness of breath, resolved, cough, no sputum production. No wheezi ng. Cardiovascular: No chest pain, no lower extremity edema. No palpitations. No paroxysmal nocturnal dyspnea. No orthopnea. No lightheadedness or dizziness. No syncopal episodes. Abdominal: No abdominal pain. No nausea, vomiting. No diarrhea. Reports constipation. No bloody or tarry stools.. No loss of appetite. Genitourinary: No dysuria, increased frequency, urgency. No urinary retention. Musculoskeletal: No myalgias. Generalized muscle weakness, no gait dysfunction, no frequent falls. positive lower back pain with incision pain as well. Integumentary: No wounds, no lesions. No rash or pruritus. No unusual bruising. No change in hair or nails. Neurologic: No aphasia. No facial droop. No change in mentation. No head injury. No headache. No paralysis. slight paresthesia from the knee down bilaterally.. Psychiatric: No depression. No anxiety. No mood swings. Endocrine: No abnormal blood sugars. No weight change. No excessive sweating or thirst. No cold intolerance. PHYSICAL EXAMINATION Gen: This is well-developed in no acute respiratory distress.Patient is resting in bed. HEENT: Head is atraumatic, normocephalic. Pupils equal, round. Sclerae is anicteric. NECK: Supple. No JVD. No lymphadenopathy. No thyromegaly. LUNGS: Clear to auscultation. No wheezes or rhonchi. No intercostal retractions. HEART: Regular rate and rhythm. No murmur. ABDOMEN: Soft. Bowel sounds are present. No masses. No tenderness. EXTREMITIES: No pedal edema. No calf tenderness. NEUROLOGICAL: Patient is awake, alert and oriented x3. Cranial nerves 2 through 12 are grossly intact. slight weakness of the lower extremity with mild paresthesia and numbness from the knee down. Lumbar spine: His incision looks fine with no hematoma induration no sign of infection. ASSESSMENT AND PLAN 1.post lumbar laminectomy and decompression of L3-L4, L4-L5. Resume home meds, watch pain and watch patient hemodynamic status carefully.Continue incentive spirometry to reduce incidence of atelectasis and hospital acquired pneumonia. 2 hypertension: We'll resume his amlodipine/LOSARTAN 5/40 MG HALF TABLET DAILY. Amlodipine increased to 5 mg daily. Patient to take full tablet of Yoel at home. 3 HYPERLIPIDEMIA: HAS BEEN OFF STATIN BECAUSE OF SIDE EFFECTS USING TRICOR AND STATIN PREVIOUSLY. 4 BPH. Monitor for retention, CONTINUE FLOMAX 0.4 MG TWICE A DAY. 5 HISTORY OF RECURRENT GOUT: PATIENT HAS BEEN ON ZYLOPRIM 300 MG DAILY WITH NO FLAREUP LATELY. 6 CHRONIC HISTORY OF MIGRAINE RECURRENT HEADACHE HAS BEEN DOING MUCH BETTER LATELY ON AMITRIPTYLINE 50 MG AT BEDTIME STILL USING HYDROCORTISONE ON FIORICET ON NEEDED BASIS. 7 CHRONIC HISTORY OF GLEZ. 8 CHRONIC PAIN SYNDROME: HAS BEEN ON HYDROCODONE ON AN -NEEDED BASIS. 9 SEVERE GERD POST CIERA FUNDOPLICATION: PATIENT IS STILL USING PPI ON DEMAND RESUME PANTOPRAZOLE AT 40 MG DAILY. 10 DVT PROPHYLAXIS: EARLY MOBILIZATION AND KNEE-HIGH WENDY HOSE WILL BE USE. 11. Nasal swab positive for MRSA. Continue vancomycin and plan for doxycycline at time of discharge. 12. Acute hypoxic respiratory failure secondary to possible aspiration pneumonia and Fluid overload secondary to IV fluid administration. IV fluids discontinued, one dose of IV Lasix 40 mg ordered, continue to encourage incentive spirometry, DuoNeb treatments 3 times daily and as needed, continue Zosyn. Prescriptions for doxycycline and albuterol inhaler sent to his pharmacy. 13. Constipation. Senokot increased to 2 scheduled daily, MiraLAX added daily, milk of magnesia as needed. CODE STATUS: FULL CODE. DISCHARGE PLAN Home Impression and plan of care have been directed as dictated by the signing physician. Marychuy Emerson nurse practitioner acting as scribe for signing physician. Objective - Vital Signs Vital signs: Vital Signs Temp 98.2 F 10/17/21 07:18 Pulse 88 10/17/21 08:01 Resp 16 10/17/21 07:18 BP 154/83 10/17/21 07:18 Pulse Ox 95 10/17/21 07:18 FiO2 Intake & Output 10/16/21 10/17/21 10/17/21 18:59 06:59 18:59 Intake Total 590 296 Balance 590 296 Intake: Oral 590 296 Other: # Voids 3 2 - Labs CBC & Chem 7: 10/16/21 04:54 10/16/21 04:54 Labs: Abnormal Lab Results - Last 24 Hours (Table) 10/16/21 10/16/21 Range/Units 04:54 04:54 RBC 3.36 L (4.40-5.60) X 10*6/uL Hgb 10.3 L (13.0-17.0) g/dL Hct 30.9 L (39.6-50.0) % Carbon Dioxide 27.6 H (20.0-27.5) mmol/L Glucose 123 H (70-110) mg/dL AST 73 H (14-35) U/L ALT 68 H (10-49) U/L Total Protein 5.5 L (6.2-8.2) g/dL Albumin 3.4 L (3.8-4.9) g/dL
--- NOTE | 2021-10-17 12:31 | P.DS ---
Providers Date of admission: 10/14/21 10:48 Expected date of discharge: 10/17/21 Attending physician: Lupe Mariee Consults: 10/12/21 12:54 Consult Physician Routine Consulting Provider: Eze Pruett Consult Reason/Comments: Medical management Do you want consulting provider notified?: Yes 10/15/21 08:38 Consult Physician Routine Consulting Provider: João Branch Consult Reason/Comments: hypoxia Do you want consulting provider notified?: Yes Primary care physician: Eze Pruett - Discharge Diagnosis(es) (1) Low back pain Current Visit: Yes Status: Acute (2) Lumbar stenosis Current Visit: Yes Status: Acute (3) Lumbar facet arthropathy Current Visit: Yes Status: Acute (4) Lumbar degenerative disc disease Current Visit: Yes Status: Acute (5) Lumbar scoliosis Current Visit: Yes Status: Acute (6) Radiculopathy with lower extremity symptoms Current Visit: Yes Status: Acute (7) Hypertension Current Visit: Yes Status: Acute (8) Hyperlipidemia Current Visit: Yes Status: Acute (9) BPH (benign prostatic hyperplasia) Current Visit: Yes Status: Acute (10) Chronic pain syndrome Current Visit: Yes Status: Acute (11) Acute respiratory failure with hypoxia Current Visit: Yes Status: Acute (12) S/P lumbar fusion Current Visit: Yes Status: Acute Priority: Medium Hospital Course: This is a pleasant 61-year-old male who presented with low back pain, lower extremity radiculopathy, L3-4 and L4-5 spinal stenosis and severe degenerative disc disease, lumbar degenerative scoliosis, and lumbar facet arthrosis who failed outpatient conservative therapy. He was admitted for an L3-4 and L4-5 minimally invasive posterior lateral decompression and fusion with transforaminal lumbar interbody fusion. The patient tolerated the procedure well and did well postoperatively in regards to his lumbar spine. He is not currently experiencing any significant low back pain or lower extremity radiculopathy bilaterally. He has been able to increase his mobility and ambulation. The dressings of the surgical sites have been removed. His surgical sites are clean, dry, and intact with no active drainage. Patient currently denies any nausea, vomiting, fever, or chills. Patient is eating and voiding freely without difficulty. Patient feels from an orthopedic spine standpoint he is ready for discharge today. He has not had a bowel movement since his admission but he is passing significant amount of gas. He did not eat much food over the first few days postoperatively. He is receiving MiraLAX, milk of magnesia, and Senokot to aid in facilitation of a bowel movement. Over the weekend he's been undergoing further treatment and evaluation for acute hypoxic respiratory failure secondary to possible aspiration pneumonia and fluid overload secondary to IV fluid administration. IV fluids have been discontinued. His breathing has continued to improve. High flow has been able to be discontinued. He is currently scheduled to undergo CT angiogram of the chest today. Nursing states that this testing is negative for significant findings medicine may plan to clear the patient for discharge today. We did discuss if the patient would need antibiotics at the time of discharge is would be managed by medicine or pulmonology. We did discuss patient must be clear for discharge by medicine and pulmonology prior to discharge home. Condition on day of discharge stable. Patient will be discharged home. Patient was cleared preoperatively for surgery by Dr. Pruett. Patient should refrain f rom driving until at least after their first follow-up appointment in the office. Patient should avoid excessive bending, lifting, and twisting; no lifting greater than 10 pounds. MAPS has been reviewed on 10/14/2021, with an Overall Overdose Risk Score of 220. An "Opiod Start Talking" Form has been signed and placed in the patient's chart. A prescription has been written for hydrocodone 10 mg/325 mg 1 every 6 hours as needed for pain, dispense #28. Patient should avoid other previously prescribed narcotic medications while taking the new prescription for hydrocodone 10 mg/325 mg. Patient has been taking hydrocodone 10 mg/325 mg during his admission to the hospital without difficulty. Patient is also given prescriptions for cyclobenzaprine 10 mg, take 1 tab 3 times a day as needed for muscle spasm, dispensed #60 and Senokot-S, take 1 tab twice a day as needed for constipation, dispensed #60. Medications [facility] per the patient's request. Patient should avoid anti-inflammatory medications over the next 6 weeks postoperatively. Patient's other medical diagnoses include hypertension, hyperlipidemia, BPH, and chronic pain syndrome. Physical Exam on day of discharge: Status post surgical day number 5 Patient is awake, alert, and oriented 3 Vital signs stable Adequate chest excursion with deep inspiration and expiration; high flow has been discontinued Dorsiflexion, plantarflexion, and extensor hallucis longus positive sustained bilaterally No signs or symptoms of DVT; no calf pain; pneumatic cuffs not currently intact bilateral lower extremities Optifoam dressings have been removed over the surgical sites No active drainage from the surgical sites Surgical sites are clean, dry, and intact No significant pain with palpation of the surgical sites Neurovascularly intact bilaterally lower extremities Procedures: L3-4 and L4-5 minimally invasive posterior lateral decompression and fusion with transforaminal lumbar interbody fusion Patient Condition at Discharge: Stable Plan - Discharge Summary Discharge Rx Participant: Yes New Discharge Prescriptions: New Cyclobenzaprine [Flexeril] 10 mg PO TID PRN #60 tab PRN Reason: Muscle Spasm polyethylene glycoL 3350 [Miralax] 17 gm PO DAILY packet Doxycycline [Vibramycin] 100 mg PO BID 10 Days #14 capsule HYDROcodone/APAP 10-325MG [Joiner 10] 1 each PO Q6H PRN #28 tab PRN Reason: Pain Sennosides-Docusate Sodium [Senokot-S] 1 tab PO BID PRN #60 tablet PRN Reason: Constipation Albuterol Inhaler [Ventolin Hfa Inhaler] 2 puff INHALATION RT-TID #8 gm Continue Amitriptyline HCl 50 mg PO HS amLODIPine BES/OLMESARTAN MED [Yoel 5-40 mg Tablet] 0.5 tab PO QAM Ibuprofen [Advil] 200 mg PO Q8HR PRN PRN Reason: Pain Allopurinol [Zyloprim] 300 mg PO HS Tart Alfonso 1,000 mg PO DAILY Tamsulosin [Flomax] 0.4 mg PO BID HYDROcodone/APAP 7.5-325MG [Joiner 7.5-325] 1 tab PO Q8H PRN PRN Reason: Pain Magnesium (Unknown Dose) 1 tab PO DAILY Potassium Gluconate [Potassium Gluconate ER] 99 mg PO DAILY Discharge Medication List Amitriptyline HCl 50 mg PO HS 06/11/14 [History] amLODIPine BES/OLMESARTAN MED [Yoel 5-40 mg Tablet] 0.5 tab PO QAM 07/29/14 [History] Allopurinol [Zyloprim] 300 mg PO HS 10/10/21 [History] HYDROcodone/APAP 7.5-325MG [Joiner 7.5-325] 1 tab PO Q8H PRN 10/10/21 [History] Ibuprofen [Advil] 200 mg PO Q8HR PRN 10/10/21 [History] Magnesium (Unknown Dose) 1 tab PO DAILY 10/10/21 [History] Potassium Gluconate [Potassium Gluconate ER] 99 mg PO DAILY 10/10/21 [History] Tamsulosin [Flomax] 0.4 mg PO BID 10/10/21 [History] Tart Alfonso 1,000 mg PO DAILY 10/10/21 [History] Doxycycline [Vibramycin] 100 mg PO BID 10 Days #14 capsule 10/13/21 [Rx] Cyclobenzaprine [Flexeril] 10 mg PO TID PRN #60 tab 10/14/21 [Rx] HYDROcodone/APAP 10-325MG [Joiner 10] 1 each PO Q6H PRN #28 tab 10/14/21 [Rx] Sennosides-Docusate Sodium [Senokot-S] 1 tab PO BID PRN #60 tablet 10/14/21 [Rx] Albuterol Inhaler [Ventolin Hfa Inhaler] 2 puff INHALATION RT-TID #8 gm 10/17/21 [Rx] polyethylene glycoL 3350 [Miralax] 17 gm PO DAILY packet 10/17/21 [Rx] Follow up Appointment(s)/Referral(s): Eze Pruett MD [Primary Care Provider] - 3 Days Yo Lin PAC [PHYSICIAN TITLE SEARCHER] - 2 Weeks (Patient may follow-up with Yo Lin PA-C or Dr. Shakir Mariee at [facility] in 2-3 weeks following discharge. ) Activity/Diet/Wound Care/Special Instructions: Please resume Yoel at 1 full tablet daily. 1. Patient may shower without a dressing intact. 2. Patient should refrain from driving until at least after their first follow- up appointment in the office. 3. Patient should avoid excessive bending, twisting, lifting; avoid overhead lifting; no lifting greater than 10 pounds 4. Patient may use walker to aid in ambulation as needed 5. Take medications as prescribed 6. Patient should avoid anti-inflammatory medications over the next 6 weeks postoperatively 7. Do not soak in tub Discharge Disposition: HOME SELF-CARE
[2021-10-17] MEDS: MAGNESIUM HYDROXIDE 2,400 MG/10 ML CUP PO PRN (13:16)
--- NOTE | 2021-10-17 13:19 | P.PN ---
Subjective Progress Note Date: 10/17/21 This is a very pleasant 61-year-old male patient with a history of hypertension, BPH, hyperlipidemia, gout, GLEZ, irritable bowel syndrome, psoriasis and severe GERD status post Gelacio fundoplication and back pain. He was brought in electively on 10/12/2021 for spinal stenosis status post laminectomy and decompression of L3-4, L4-5. He had been recovering when he developed increasing shortness of breath, cough and congestion. Yesterday's chest x-ray revealed congestive heart failure and fluid volume overload with new mild to moderate alveolar and interstitial edema. He was given Lasix 40 mg IVP 1. White count 12.6. Hemoglobin 10.5. Sodium 1:30. Potassium 3.9. BUN 9.9. Creatinine 0.7. Glucose 131. AST 64. ALT 50. Coronavirus by PCR not detected. Influenza screen negative. Today's chest x-ray revealed improved bilateral interstitial and central edema. There is developing right basilar acute infiltrate/atelectasis. We're consulted for the same. He is seen today on the regular medical floor. Currently resting fairly comfortably in bed. Awake and alert in no acute distress. Maintaining O2 saturations in the 90s on 9 L high flow nasal cannula now. He does have a productive cough of yellow sputum. He is a lifelong nonsmoker. He's been initiated on Zosyn. Encouraged regarding the use of the incentive spirometer and cough and deep breathing exercises. The patient is seen today 10/16/2021 in follow-up on the regular medical floor. He is awake and alert in no acute distress. He is maintaining O2 saturation in the 90s on 7 L high flow nasal cannula. He is working well with the incentive spirometer. White count 8.4. Hemoglobin 10.3. Sodium 137. Potassium 3.8. BUN 9. Creatinine 0.7. He remains on DuoNeb inhalations, antibiotics in the form of Zosyn. Up ambulating with assistance and a walker. /10/17/2021 , the patient is being seen for a follow-up regarding his right lung pneumonia. The patient is postop following back surgery and today is postop day #5. the patient has no specific complaints and the patient is doing well. The patient is doing well. No specific complaints. no chest pain. His chest x-ray was done today and the patient has some limited right lower lobe consolidation. No significant cough sputum production chest answer wheezing. Using incentive spirometer. surgical wound site over the back is dry clean and intact. no nausea. No vomiting. No diarrhea. No abdominal pain. He remains on IV Zosyn. primary care physician ordered a computed tomography scan of the chest and I believe this is a CT angiogram and we're still awaiting for the results. Objective - Vital Signs Vital signs: Vital Signs Temp 98.2 F 10/17/21 07:18 Pulse 88 10/17/21 08:01 Resp 16 10/17/21 07:18 BP 154/83 10/17/21 07:18 Pulse Ox 95 10/17/21 07:18 FiO2 Intake & Output 10/16/21 10/17/21 10/17/21 18:59 06:59 18:59 Intake Total 590 296 Output Total 600 Balance 590 -304 Intake: Oral 590 296 Output: Urine 600 Other: # Voids 3 2 - Exam GENERAL EXAM: Alert, pleasant 61-year-old male patient, on RA 0 Bond on room air oxygen by2 RA , fairly comfortable in no apparent distress. HEAD: Normocephalic. EYES: Normal reaction of pupils, equal size. NOSE: Clear with pink turbinates. THROAT: No erythema or exudates. NECK: No masses, no JVD. CHEST: No chest wall deformity. LUNGS: Equal air entry with crackles in the bilateral bases right greater than left. CVS: S1 and S2 normal with no audible murmur, regular rhythm. ABDOMEN: No hepatosplenomegaly, normal bowel sounds, no guarding or rigidity. SPINE: Surgical dressing is dry and intact SKIN: No rashes CENTRAL NERVOUS SYSTEM: No focal deficits, tone is normal in all 4 extremities. EXTREMITIES: There is no peripheral edema. No clubbing, no cyanosis. Peripheral pulses are intact - Labs CBC & Chem 7: 10/16/21 04:54 10/16/21 04:54 Assessment and Plan Plan: 1 Back pain status post L34 and L4-5 minimally invasive posterior lateral decompression and fusion with transforaminal lumbar interbody fusion. Postoperative day #5. 2 Acute hypoxemic respiratory failure, unexpected outcome of surgery, suspect aspiration pneumonia and fluid volume overload the patient has recovered and the patient is currently on room air oxygen. 3 Chronic pain syndrome 4 Hypertension 5 Hyperlipidemia 6 BPH 7 History of gout 8 GLEZ 9 History of severe gastroesophageal reflux disease, status post Jeffry fundoplication Plan: patient is doing well currently on room air oxygen Complete the computed tomography scan of the chest upon request of the primary care team If the findings are consistent with pneumonia, the patient will be given Augmentin and the patient can be released following that. Titrate down the FiO2 as tolerated, currently on RA Increased use of the incentive spirometer Increase his activity as tolerated
--- NOTE | 2021-10-17 13:47 | CT ---
EXAMINATION TYPE: CT angio chest DATE OF EXAM: 10/17/2021 COMPARISON: No previous CT scan is available for comparison HISTORY: SOB CT DLP: 438.1 mGy.cm. Automated Exposure Control for Dose Reduction was Utilized. TECHNIQUE AND CONTRAST: CTA scan of the thorax is performed with IV Contrast, patient injected with 83cc mL of Isovue 370, pu lmonary angiogram protocol. MIP Images are created on an independent workstation and reviewed. FINDINGS: No definite filling defect within the pulmonary trunk, main pulmonary arteries, lobar, segmental and proximal subsegmental branches to suggest pulmonary embolism. Distal subsegmental branches are subopt imally assessed. The pulmonary trunk measures 3.7 cm which may suggest pulmonary hypertension. Dilate d ascending aorta measuring up to 4.1 cm. Scattered arterial atherosclerotic calcifications. No gross cardiomegaly. No pericardial effusion. Bilateral pleural effusions with incomplete collapse/atelectasis of the lower lobes more on the right side. Associated infection cannot be excluded, please correlate clinically. Focal infiltration/groun dglass opacities in the upper lung lobes, attention on follow-up. Patent trachea and main bronchi. Enlarged hilar and mediastinal lymph nodes. For example, a right hilar lymph node measures 12 mm. A l eft hilar lymph node measures 16 mm. Subcarinal lymph node measures 17 mm. Subcentimeter bilateral ax illary lymph nodes. Enlarged liver with hepatic steatosis. Cholelithiasis. Surgical clips at the roman roesophageal junction. No aggressive bone lesion. IMPRESSION: No major or central pulmonary embolism. Bilateral pleural effusions and bilateral lower lobe incomple te collapse/atelectasis, more on the right side. Acute infection cannot be excluded. Bilateral upper lobe pulmonary infiltration/groundglass opacities, possibly inflammatory/infectious i n etiology, please correlate clinically. Follow-up to resolution is advised. Enlarged hilar and mediastinal lymph nodes as detailed above, nonspecific. Recommend clinical correla tion and further workup for the underlying etiology including sarcoidosis. Follow-up CT scan in 2-3 m [facility] can be also considered. Other findings as described above.
[2021-10-17 14:03] VITALS: BP 154/85; PULSE 92; TEMP 98.9
[2021-10-17] MEDS: LACTATED RINGERS 1,000 ML IV SCH (15:31)
== END 2021-10-17 17:07 | disposition home or self-care (01) | DRG 981 ==
LOC: OR 07:15 → EDSTATUS 08:30 → 4SSUR 12:46 → OR 10-13 02:28 → OBSVTOIN 10-14 10:48
PROVIDERS: ADMIT Orthopaedic Surgery Orthopaedic Surgery of the Spine; ATTEND Orthopaedic Surgery Orthopaedic Surgery of the Spine
PROC: 8E0WXBZ Computer Assisted Procedure of Trunk Region (ICD-10-PCS; principal; 2021-10-12 08:30)
PROC: 0SG10J1 Fusion of 2 or more Lumbar Vertebral Joints with Synthetic Substitute, Posterior Approach, Posterior Column, Open Approach (ICD-10-PCS; principal; 2021-10-12 08:30)
PROC: 0SG10AJ Fusion of 2 or more Lumbar Vertebral Joints with Interbody Fusion Device, Posterior Approach, Anterior Column, Open Approach (ICD-10-PCS; principal; 2021-10-12 08:30)
PROC: 0SB20ZZ Excision of Lumbar Vertebral Disc, Open Approach (ICD-10-PCS; principal; 2021-10-12 08:30)
PROC: 07DS3ZZ Extraction of Vertebral Bone Marrow, Percutaneous Approach (ICD-10-PCS; principal; 2021-10-12 08:30)
PROC: 01NB0ZZ Release Lumbar Nerve, Open Approach (ICD-10-PCS; principal; 2021-10-12 08:30)
PROC: 5A0945A Assistance with Respiratory Ventilation, 24-96 Consecutive Hours, High Flow/Velocity Cannula (ICD-10-PCS; 2021-10-16)
DX: I11.0 Hypertensive heart disease with heart failure (principal); J69.0 Pneumonitis due to inhalation of food and vomit; J96.01 Acute respiratory failure with hypoxia; J98.11 Atelectasis; I50.9 Heart failure, unspecified; M48.061 Spinal stenosis, lumbar region without neurogenic claudication; E78.5 Hyperlipidemia, unspecified; E86.0 Dehydration; G43.909 Migraine, unspecified, not intractable, without status migrainosus; G89.4 Chronic pain syndrome; I73.9 Peripheral vascular disease, unspecified; K21.9 Gastro-esophageal reflux disease without esophagitis; K59.00 Constipation, unspecified; M10.9 Gout, unspecified; M41.86 Other forms of scoliosis, lumbar region; M47.26 Other spondylosis with radiculopathy, lumbar region; M51.16 Intervertebral disc disorders with radiculopathy, lumbar region; L40.9 Psoriasis, unspecified; N40.0 Benign prostatic hyperplasia without lower urinary tract symptoms; K58.9 Irritable bowel syndrome, unspecified; K75.81 Nonalcoholic steatohepatitis (NASH); Z98.890 Other specified postprocedural states; Z28.310 Unvaccinated for COVID-19; Z20.822 Contact with and (suspected) exposure to COVID-19; Z79.899 Other long term (current) drug therapy; Z80.8 Family history of malignant neoplasm of other organs or systems; Z82.3 Family history of stroke; Z82.49 Family history of ischemic heart disease and other diseases of the circulatory system; Z87.442 Personal history of urinary calculi; Z81.8 Family history of other mental and behavioral disorders; Z83.79 Family history of other diseases of the digestive system; Z88.5 Allergy status to narcotic agent
CPT/HCPCS: 71045; 71275; 72100; 80053; 83605; 85025; 85027; 86850; 86900; 86901; 87502; 87635; 94640; 94760

== ENCOUNTER → 2024-12-01 | Outpatient (CLI) | payer MEDICARE ==
[2024-12-01 10:23] LABS: INR 1.0 (<1.2); Partial Thromboplastin Time 23.5 sec (22.0-30.0); Prothrombin Time 10.8 sec (10.0-12.5)
--- NOTE | 2024-12-01 10:44 | XR ---
EXAMINATION TYPE: XR chest 2V DATE OF EXAM: 12/01/2024 10:38 AM COMPARISON: Chest radiographs from 10/17/2021, CTA chest 10/17/2021 TECHNIQUE: XR chest 2V Frontal and lateral views of the chest. CLINICAL INDICATION:Male, 64 years old with history of [id number]; FINDINGS: Lungs/Pleura: There is no evidence of pleural effusion, focal consolidation, or pneumothorax. Pulmonary vascularity: Unremarkable. Heart/mediastinum: Cardiomediastinal silhouette is unremarkable. Musculoskeletal: Multiple level degenerative disc disease changes seen throughout the spine. IMPRESSION: No acute cardiopulmonary disease/process. [facility], , 12/01/2024 10:42 AM
[2024-12-01 15:26] LABS: BUN/Creat Ratio 17.38 Ratio (12.00-20.00); Blood Urea Nitrogen 13.9 mg/dL (9.0-27.0); Chloride 100 mmol/L (96-109); Glucose 315 mg/dL (70-110); Potassium 4.2 mmol/L (3.5-5.5); Sodium 137 mmol/L (135-145)
[2024-12-01 15:27] LABS: Anion Gap 12.30 mmol/L (4.00-12.00); Calcium 9.7 mg/dL (8.7-10.3); Carbon Dioxide 24.7 mmol/L (21.6-31.8)
[2024-12-01 16:09] LABS: Basophils # (A) 0.05 X 10*3/uL (0.00-0.10); Basophils % (A) 0.5 %; Eosinophils # (A) 0.19 X 10*3/uL (0.04-0.35); Eosinophils % (A) 1.8 %; HCT 41.5 % (39.6-50.0); HGB 13.5 g/dL (13.0-17.0); Immature Grans, Automated 0.90 %; Lymphocytes # (A) 2.08 X 10*3/uL (0.90-5.00); Lymphocytes % (A) 19.6 %; MCH 31.0 pg (27.0-32.0); MCHC 32.5 g/dL (32.0-37.0); MCV 95.4 FL (80.0-97.0); Monocytes # (A) 0.63 X 10*3/uL (0.20-1.00); Monocytes % (A) 5.9 %; NRBC Per 100 WBC 0 X 10*3/uL (0.00-0.01); Neutrophils # (A) 7.54 X 10*3/uL (1.80-7.70); Neutrophils % (A) 71.3 %; Platelet Count 385 X 10*3/uL (140-440); RBC 4.35 X 10*6/uL (4.40-5.60); RDW 11.8 % (11.5-14.5); WBC 10.59 X 10*3/uL (4.50-10.00)
[2024-12-01 16:24] LABS: Bilirubin,Urine Negative (Negative); Blood,Urine Negative (Negative); Color,Urine Dark Yellow (Yellow); Ketones,Urine Trace (Negative); Nitrite,Urine Negative (Negative); PH, Urine 6.5; Specific Gravity,Urine 1.024 (1.001-1.030); Urobilinogen,Urine 1.0 E.U./DL
== END | disposition home or self-care (01) ==
LOC: LABPAT 09:22
PROVIDERS: ATTEND Orthopaedic Surgery Orthopaedic Surgery of the Spine
DX: Z01.818 Encounter for other preprocedural examination (principal); M48.00 Spinal stenosis, site unspecified; Z22.322 Carrier or suspected carrier of Methicillin resistant Staphylococcus aureus
CPT/HCPCS: 71046; 80048; 81003; 85025; 85610; 85730; 86850; 86900; 86901; 87070; 93005

== ENCOUNTER 2024-12-10 11:31 | Day surgery (SDC) | payer BC, MEDICARE ==
[2024-12-03 15:06] VITALS: BMI 24.3
[2024-12-10] MEDS: IV FLUID CONTINUATION 1,000 ML IV ONE ×4 (11:53→14:39)
[2024-12-10 12:30] LABS: Glucose,Whole Blood 122 mg/dL (70-110)
[2024-12-10] MEDS: DEXAMETHASONE SOD PHOSPHATE 4 MG/ML 1 ML VIAL IVP STA (12:34)
[2024-12-10] MEDS: ONDANSETRON 4 MG/2 ML VIAL IVP STA (12:35)
[2024-12-10] MEDS ORDERED: TRANEXAMIC 1,000 MG/100ML-NACL 1,000 MG in SALINE 1 100ML.BAG IVPB PRN (12:42)
[2024-12-10] MEDS ORDERED: ROCURONIUM 10 MG/ML (5 ML VIAL) IV ONE (13:02)
[2024-12-10] MEDS ORDERED: WATER FOR INJECTION, STERILE 10 ML VIAL IV ONE (13:02)
[2024-12-10] MEDS ORDERED: NEOSTIGMINE 1 MG/ML 10 ML VIAL ONE (13:02)
[2024-12-10] MEDS ORDERED: ePHEDrine 50 MG/ML 1 ML VIAL ONE (13:02)
[2024-12-10] MEDS ORDERED: ACETAMINOPHEN IV (For NPO) 1,000 MG/100 ML VIAL ONE (13:02)
[2024-12-10] MEDS ORDERED: PHENYLEPHRINE 10 MG/ML VIAL ONE (13:02)
[2024-12-10] MEDS ORDERED: fentaNYL (PF) 50 MCG/ML 2 ML AMP ONE (13:02)
[2024-12-10] MEDS ORDERED: GLYCOPYRROLATE 0.2 MG/ML 2 ML VIAL ONE (13:02)
[2024-12-10] MEDS ORDERED: LIDOCAINE 1% INJ 10MG/ML (20 ML MDV) ONE (13:02)
[2024-12-10] MEDS ORDERED: PROPOFOL 10 MG/ML 20 ML VIAL IV ONE (13:02)
[2024-12-10] MEDS ORDERED: VASOPRESSIN 20 UNIT/ML 1 ML VIAL ONE (13:02)
[2024-12-10] MEDS ORDERED: MIDAZOLAM 2 MG/2 ML VIAL ONE (13:02)
[2024-12-10] MEDS ORDERED: KETAMINE HCL IN 0.9 % NACL 50 MG/5 ML SYRINGE ONE (13:02)
[2024-12-10] MEDS ORDERED: SUCCINYLCHOLINE CHLORIDE 200 MG/10 ML VIAL IV ONE (13:02)
[2024-12-10] MEDS ORDERED: TRANEXAMIC 1,000 MG/100ML-NACL PREMIX BAG ONE (13:02)
[2024-12-10] MEDS: THROMBIN (BOVINE) 5,000 UNIT VIAL TOPICAL ONE (13:52)
[2024-12-10] MEDS: BUPIVACAINE (PF) 0.25% 30 ML VIAL SQ ONE (13:54)
[2024-12-10] MEDS: LIDOCAINE 1%-EPI 1:100,000 20 ML VIAL SQ ONE (13:54)
[2024-12-10] MEDS: ceFAZolin 1,000 MG in SODIUM CHLORIDE 0.9% IRRIGATIO 1,000 ML IRRIGATION PRN (13:56)
[2024-12-10] MEDS ORDERED: BENZOCAINE/MENTHOL LOZENG 1 EACH LOZENGE MUCOUS MEM PRN (16:16)
[2024-12-10] MEDS ORDERED: ONDANSETRON 4 MG/2 ML VIAL IVP PRN (16:17)
--- NOTE | 2024-12-10 16:19 | XR ---
EXAMINATION TYPE: XR lumbar spine 2 or 3V, FL guidance operating room DATE OF EXAM: 12/10/2024 FLUOROSCOPY L2-L3 FUSION, L3-L4- L4-L5 HARDWARE REMOVAL WITH DR. RIVERA FL TIME .16 SEC DAP 271.38 No images are submitted. [facility], Workstation: [employer], 12/10/2024 4:17 PM
[2024-12-10] MEDS ORDERED: LORATADINE 10 MG TAB PO PRN (16:21)
[2024-12-10] MEDS ORDERED: [UNRECOGNIZED DRUG - OTHER] PO PRN (16:21)
--- NOTE | 2024-12-10 16:30 | P.OP ---
Date of Procedure: 12/10/24 Preoperative Diagnosis: Degenerative scoliosis, spinal stenosis L2-3, herniated nucleus pulposus L2-3, facet cyst L2-3, lower extremity radiculopathy, history of prior decompression fusion L3-L5 with retained hardware Postoperative Diagnosis: Same Anesthesia: GETA Pathology: none sent Condition: stable Disposition: PACU Description of Procedure: DESCRIPTION OF PROCEDURE(S): BRIEF OPERATIVE NOTE Preoperative Diagnosis: Degenerative scoliosis, spinal stenosis L2-3, herniated nucleus pulposus L2-3, facet cyst L2-3, lower extremity radiculopathy, history of prior decompression fusion L3-L5 with retained hardware Postoperative Diagnosis: Same Procedure: Laminectomy and decompression L2-[address] navigation aided Minimally invasive Posterior lateral decompression and facet fusion L2-3 Minimally invasive Transforaminal lumbar interbody fusion for a 360 fusion L2-3 Discectomy for decompression L2-3 Placement of interbody graft L2-3 Use of computer navigation for fusion L2-3 Local autogenous bone grafting Aspiration of bone marrow from the vertebral body pedicle to on the right Use of bone graft extenders Exploration of fusion L3-4 with findings of solid hardware and fusion Extension of fusion from L3-5 to L2-3 Surgeon: Dr. Mariee Clinical Appeals Specialist: Yo REYES who is present throughout the entire the case persistence during positioning, dissection, exposure, visualization, and all crucial elements of the case as well as closure. Anesthesia: General anesthesia per Dr. Alegre Estimated blood loss: Approximately 200 mL Complications: None apparent Components implanted: K2M minimally invasive [place]ton pedicle screw system withscrews measuring 6.5 mm in diameter to rods one Bramwell interbody cage with 10 mL of osteo amp bio4 bone graft substitute and 30 mL of the BX bone fibers to supplement the local autogenous bone graft and bone marrow aspirate we used [place] santiago extension system x 2 for bilateral santiago extension from L 2 to connect between L3-4 Disposition: To recovery room in good stable condition. OPERATIVE INDICATIONS The patient has had severe issues at their lower extremity in her lower back over the past year with significant worsening over the past several months. The patient had a history of lumbar decompression and fusion from L3-L5 in the past which was done several years ago with our service. The patient was very happy with the result and did quite well with his procedure and his recovery. Patient has maintain some activity however he has been having worsening difficulty over the past year particular in the past few months with pain in his back and his lower extremities particularly on the left. Over the past few months the patient had pain at their back and their lower extremities. The patient is having severe radicular symptoms at their lower extremity with weakness. The patient is having significant pain in their back. They are unable to obtain any comfort. We did aggressive conservative treatment with medications therapy and interventional pain management however thery were not having any relief. The patient also showed evidence of degenerative scoliosis. Patient was having significant troubles in his leg and was not having long-term relief despite aggressive conservative care. His imaging correlated well with his symptoms. The patient has been through conservative treatment. We discussed various treatment options including surgery, and the patient wishes to proceed with surgery We discussed the risk, patient's alternatives and benefits of surgery including but not limited to, risk of bleeding risk of infection, risk of need for further surgery, risk of decreased, loss of motion, muscle function, malunion nonunion, hardware failure, nerve damage, paralysis, heart attack, blindness and . They understood issues with the current pandemic and the possibility of exposure. OPERATIVE SUMMARY After discussing all the risks, patient alternatives and benefits at length, the patient elected to proceed with surgical intervention, signed informed consent, and presented for their procedure. The patient was seen and examined in the preoperative holding area and the surgical site was marked. The patient was given antibiotics and brought to the operating room. The patient was sedated and intubated by anesthesia in standard fashion. The patient was positioned on to the operating room table in a prone position on the appropriate frame which was well-padded and well molded. We were careful to pad any bony prominences and pressure points. We were careful to maintain the patient's cervical spine and good neutral alignment and position throughout. The patient was prepped and draped in a normal standard fashion. An appropriate timeout and keystone protocol performed. We were able to proceed with the surgery. The local wound area was infiltrated with local anesthetic. Over the right iliac crest I was able to make small stab incisions and establish a guidepin screw fixation to the iliac crest 2. I was able place the computer referencing device over the guidepins to establish an appropriate reference point for the Ziem CT navigation. We then were able to place patient in an appropriate drape and do a navigation spin for visualization and 3-D reconstruction of the lumbar spine. I was able utilize C-arm guidance and navigation to establish appropriate position over the pedicles bilaterally at the appropriate levels at L 2 with easy evaluation of the hardware from L3-L5. With the appropriate levels confirmed was able to make small incisions over the appropriate pedicle sites bilaterally from L2-L4. Utilizing the computer navigation device I was able to establish bony landmarks at the right iliac crest for a bony reference point for the navigation device. I was able to establish a Jamshidi needle over the lateral aspect of the pedicle and advanced the trocar into the pedicle being careful not to breech superiorly inferiorly medially or laterally using computer navigation device for new screws at L2 bilaterally. Position was confirmed regularly with AP and lateral images on C- arm and with the computer navigation device at the appropriate levels bilaterally. I was able to establish the trocar into the pedicle appropriately into the posterior aspect of the vertebral body bilaterally at the appropriate levels. This was done at each of the pedicle positions and each of the sameera tebrae. At the superior vertebrae of L2 on the right I was able to take approximately 25 mL of bone aspiration for use later in the case to supplement the allograft and autograft bone. I was able place the guidewire into the trocar and into the vertebral body appropriately under C-arm guidance. Dissection was taken down over the wire to the appropriate starting position for the screw placed. The appropriate length screw was chosen, threaded over the guidewire and screwed appropriately into the pedicle and vertebral body under C- arm guidance in excellent alignment and position with good bony purchase. This is done at each of the screw sites at the appropriate levels of L2. I was able to evaluate the screws at L3-4 and they are found to have excellent stability without any evidence of loosening. I felt that I had good space between the screws along the rods between L3-4 bilaterally in order to connect and and asked santiago extension without having to remove the hardware. I also thought I had room at the L2-3 space particularly on the left and or to gain access to the transforaminal space for the TLIF With the screws intact I extended the incision to connect the screw hole sites on the most symptomatic side on the left. I dissected down to establish access over the pars and lamina to the base of the spinous process. I was able to expose the facet joint. The capsule the facet was taken down and showed some facet arthrosis at the joint. I was able to use a combination of curettes and Kerrison rongeurs and a high-speed drill to take down the facet joint and do a facetectomy. I was able get excellent foraminal decompression and central decompression with undermining across midline to perform a laminectomy centrally and contralaterally. There was evidence of a facet cyst on the left which was taken down as well. There had some adherence to the dura which had to be meticulously taken down to get excellent decompression. I was able get good central decompression. The ligamentum flavum was taken down to further decompress centrally and at bilateral neural foramen. I was able to expose the disc space and visualize the traversing nerve root. Note was made of some disc protrusion and disc herniation that was abutting the traversing nerve root at the level causing further compression of the nerve root. I was able to establish a annulotomy at the appropriate level protecting soft tissue and neural structures. Note was made of some disc desiccation at the disc. I performed a complete discectomy with accommodation of curettes and rasps and scrapers. I was able get good endplate preparation at the disc space. I sized for the appropriate size interbody spacer protecting the soft tissue and neural structures. The wound was copiously irrigated and suctioned dry. There is no evidence of any dural tear or leak. I was able to pack the disc space with local autogenous bone graft as well as a small amount of bone graft which was also placed into the interbody cage itself. Protecting the soft tissue structures and neural structures I was able place the interbody cage in good alignment and good position with good fit and fill at the interbody space. Position was confirmed with C-arm guidance. Good hemostasis maintained. There is no evidence of any dural tear or leak. The wound was irrigated and suctioned dry. With the hardware intact, intraoperative C-arm imaging was again taken which showed good alignment and position of the hardware at the appropriate levels. I had space between the L3-4 pedicle screws to gain access to the rods. Is able to use an annex santiago extension system to place new rods connected to the old rods and extend to the pedicle screws which were new at L2 bilaterally. I was able to secure the [place] santiago systems to the old rods appropriately with the Screw and the torsion tightening device. I was able to connect appropriately and have excellent structure stable he. We were then able to measure, contour and place the rods and appropriate hardware bilaterally. I was able to place capcrews, tighten them down, and torque them with the torque screwdriver appropriately. I was able to use distraction and tension to get good realignment of the scoliotic curvature. With this intact I was able to place the local autogenous bone graft with additional bone graft enhancer as necessary into the posterior lateral gutters over the decorticated transverse processes and facet joints on the contralateral side. The remainder of the bone graft was placed over the facet joint on the contralateral side after taking down the facet joint capsule. With the bone graft intact, a stable construct, and good decompression at the appropriate levels, we were able to proceed with closure. Good hemostasis was maintained. There is no evidence of dural tear or leak. The fascia was closed for a watertight closure. he subcuticular tissue was closed with absorbable suture. The wound was cleaned and dried and dressed with the appropriate dressing. The drapes were broken down. The patient was gently rolled back onto their hospital bed being careful to maintain their cervical spine and good neutral alignment and position. They were woken up by anesthesia, extubated, and brought to the recovery room in good stable condition. The patient will be admitted to the hospital for appropriate postoperative care, medical management and monitoring. We will continue to follow them closely about the postoperative course.
[2024-12-10] MEDS: HYDROmorphone 1 MG/ML 1 ML SYRINGE IVP PRN (16:42)
[2024-12-10] MEDS: AUTO INJCT IM SCH (16:50)
[2024-12-10] MEDS: GUSELKUMAB 100 MG/ML IM SCH (16:50)
[2024-12-10] MEDS: HYDROmorphone 0.5 MG/0.5 ML SYRINGE IVP PRN (17:08)
[2024-12-10 17:30] LABS: Glucose,Whole Blood 161 mg/dL (70-110)
[2024-12-10] MEDS: HYDROcodone/APAP 10-325MG 1 EACH TAB PO PRN (19:44)
[2024-12-10] MEDS: AMITRIPTYLINE HCL 50 MG TAB PO SCH (20:02)
[2024-12-10] MEDS: amLODIPine 2.5 MG TAB PO SCH (20:03)
[2024-12-10] MEDS: metFORMIN 500 MG TAB PO SCH (20:03)
[2024-12-10] MEDS: TAMSULOSIN 0.4 MG CAP.ER.24H PO SCH (20:03)
[2024-12-10] MEDS: PIOGLITAZONE 15 MG TAB PO SCH (20:03)
[2024-12-10] MEDS: ATORVASTATIN 40 MG TAB PO SCH (20:03)
[2024-12-10] MEDS: LOSARTAN 50 MG TAB PO SCH (20:03)
[2024-12-10 20:15] LABS: Glucose,Whole Blood 242 mg/dL (70-110)
[2024-12-10] MEDS ORDERED: METFORMIN HCL PO SCH (21:00)
[2024-12-10] MEDS ORDERED: PIOGLITAZONE HCL PO SCH (21:00)
[2024-12-10] MEDS ORDERED: OLMESARTAN MED PO SCH (21:00)
[2024-12-10] MEDS ORDERED: [UNRECOGNIZED DRUG - OTHER] PO SCH (21:00)
[2024-12-10] MEDS ORDERED: AMLODIPINE BES PO SCH (21:00)
[2024-12-11] MEDS: CYCLOBENZAPRINE 10 MG TAB PO PRN (05:07)
[2024-12-11 06:14] LABS: Glucose,Whole Blood 117 mg/dL (70-110)
--- NOTE | 2024-12-11 11:18 | P.PN ---
Progress Note - Text Progress Note Date: 12/11/24 Orthopedic Spine History of present illness: Patient is a pleasant 64-year-old male who is seen and examined at the bedside following posterior lateral decompression and fusion performed yesterday. Patient states they are doing well post operatively. Currently does not complain of nausea, vomiting, fever, or chills. Patient states pain has been adequately controlled. He has some pain in his lumbar spine that is being adequately controlled with medication. He is not currently complain of any lower extremity radiculopathy symptoms. Patient is eating without difficulty. He has worked with physical therapy and was able to ambulate the entire length of the hallway today. His Weinberg catheter has been discontinued at 11 AM. He has not yet voided independently. He feels he is progressing well postoperatively and currently does not have any significant complaints. If he continues to improve, he feels he could be ready for discharge home as early as tomorrow, 12/12/2024. He will use a walker as needed to aid in ambulation. He has a walker at home. Physical Exam Lumbar Fusion: Status post surgical day number 1 Patient is awake, alert, and oriented 3 Vital signs stable Good chest excursion with deep inspiration and expiration Dorsiflexion, plantarflexion, and extensor hallucis longus positive sustained bilaterally No signs or symptoms of DVT; no calf pain; pneumatic cuffs intact bilateral lower extremities Optifoam dressings are clean, dry, and intact over the lumbar spine and right iliac crest; no erythema, purulence, or signs of infection Some swelling without drainage over the incision site on the left lumbar spine Neurovascularly intact bilaterally lower extremities Assessment: Status post L2-3 minimally invasive posterior lateral decompression and fusion with transforaminal lumbar interbody fusion with extension to retained hardware at L3-4 and L4-5 Low back pain Degenerative scoliosis L2-3 spinal stenosis L2-3 herniated nucleus pulposus L2-3 facet cyst Lower extremity radiculopathy History L3-4 and L4-5 lumbar fusion with retained hardware Plan: 1. Ambulate as tolerated; work with Physical Therapy to increase mobilization 2. Continue pain control with IV and oral medications; will plan to begin weaning the patient off of IV narcotic medication in anticipation for discharge home in the next 1-2 days 3. Dressings to remain intact with Optifoam; patient may shower with dressings intact 4. Medical management can continue to manage patient for patient's other medical diagnoses 5. We will continue to follow the patient closely; depending on the patient's progress, if he continues to improve, we may plan for discharge home as early as tomorrow, 12/12/2024 6. Patient can follow-up with Yo Lin PA-C or Dr. Shakir Mariee at [facility] in 2-3 weeks following discharge The patient is seen and examined today. He is doing well. He has been up in chair and walking in the anne already. He feels his leg is doing much better already. His Weinberg has been removed and he feels he will be able to urinate.
[2024-12-11] MEDS ORDERED: SENNOSIDES-DOCUSATE SODIUM 1 EACH TAB PO PRN (11:26)
[2024-12-11 11:46] LABS: Glucose,Whole Blood 129 mg/dL (70-110)
--- NOTE | 2024-12-11 12:36 | P.CONS ---
History of Present Illness - Reason for Consult Consult date: 12/11/24 Medical management - History of Present Illness History of present illness; patient is a 64-year-old gentleman with past medical history significant for hypertension, hypercholesterolemia who presented the hospital for elective L2-3 minimally invasive posterior lateral decompression and fusion with transforaminal lumbar interbody fusion with extension to retained hardware at L3-4 and L4-5 . Patient following up outpatient with orthopedic spine for continued back pain. Patient back pain is radiating down to his lower extremity with weakness. Decision was made to proceed with surgery, patient underwent surgery on 12/10. Postoperatively internal medicine team were consulted for medical management REVIEW OF SYSTEMS: CONSTITUTIONAL: No fever, no malaise, no fatigue. HEENT: No recent visual problems or hearing problems. Denied any sore throat. CARDIOVASCULAR: No chest pain, orthopnea, PND, no palpitations, no syncope. PULMONARY: No shortness of breath, no cough, no hemoptysis. GASTROINTESTINAL: No diarrhea, no nausea, no vomiting, no abdominal pain. NEUROLOGICAL: No headaches, no weakness, no numbness. HEMATOLOGICAL: Denies any bleeding or petechiae. GENITOURINARY: Denies any burning micturition, frequency, or urgency. MUSCULOSKELETAL/RHEUMATOLOGICAL: Denies any joint pain, swelling, or any muscle pain. ENDOCRINE: Denies any polyuria or polydipsia. The rest of the 14-point review of systems is negative. PHYSICAL EXAMINATION: GENERAL: The patient is alert and oriented x3, not in any acute distress. Well developed, well nourished. HEENT: Pupils are round and equally reacting to light. EOMI. No scleral icterus. No conjunctival pallor. Normocephalic, atraumatic. No pharyngeal erythema. No thyromegaly. CARDIOVASCULAR: S1 and S2 present. No murmurs, rubs, or gallops. PULMONARY: Chest is clear to auscultation, no wheezing or crackles. ABDOMEN: Soft, nontender, nondistended, normoactive bowel sounds. No palpable organomegaly. MUSCULOSKELETAL: No joint swelling or deformity. EXTREMITIES: No cyanosis, clubbing, or pedal edema. NEUROLOGICAL: Gross neurological examination did not reveal any focal deficits. SKIN: Lumbar area surgical incisions Assessment and plan Degenerative scoliosis spinal stenosis L2-3 herniated nucleus pulposus L2-3, lower extremity radiculopathy history of prior decompression fusion L3-L5 with retained hardware Hypertension history of diabetes mellitus Monitor vital signs Monitor CBC Status post L2-3 minimally invasive posterior lateral decompression and fusion with transforaminal lumbar interbody fusion with extension to retained hardware at L3-4 and L4-5 Continue pain management per orthopedics Continue DVT prophylaxis per orthopedics Aggressive bowel regimen to prevent opioid-induced constipation Monitor blood sugar levels, continue metformin and Actos Resume losartan and Norvasc Resume home meds PT and OT consulted Labs and medication were reviewed.. Continue same treatment. Continue with symptomatic treatment. Resume home medication. Monitor labs and vitals. DVT and GI prophylaxis. Further recommendations as per clinical course of the patient Dictation was produced using [employer] dictation software. please excuse any grammatical, word or spelling errors. Past Medical History Past Medical History: Diabetes Mellitus, GERD/Reflux, Hearing Disorder / Deafness, Hyperlipidemia, Hypertension, Musculoskeletal Disorder, Pneumonia, Skin Disorder Additional Past Medical History / Comment(s): HYPOGLYCEMIA, PSORIASIS, HX IBS - resolved with christoph fundoplasty, prediabetic, scoliosis, hx migraines, hard of hearing. History of Any Multi-Drug Resistant Organisms: None Reported Past Surgical History: Appendectomy, Back Surgery, Hernia Repair, Orthopedic Surgery, Tonsillectomy Additional Past Surgical History / Comment(s): Elbow surgery, left knee surgery X2, I&D of appendectomy incision, nasal surgery, testicular biopsy, hydrocele surgery/hernia repair, ganglion cyst removed from left finger and left foot, christoph fundoplasty. Past Anesthesia/Blood Transfusion Reactions: No Reported Reaction Additional Past Anesthesia/Blood Transfusion Reaction / Comm: No hx blood transfusion. Past Psychological History: No Psychological Hx Reported Smoking Status: Never smoker Past Alcohol Use History: None Reported Past Drug Use History: None Reported - Past Family History Mother Family Medical History: CVA/TIA, GERD/Reflux, Hyperlipidemia, Hypertension Father Family Medical History: Cancer, GERD/Reflux, Hyperlipidemia, Hypertension, Memory Impairment Additional Family Medical History / Comment(s): Melanoma. Brother(s) Family Medical History: No Reported History Son(s) Family Medical History: No Reported History Medications and Allergies Home Medications Medication Instructions Recorded Confirmed Type Amitriptyline HCl 50 mg PO HS 06/11/14 12/10/24 History amLODIPine BES/OLMESARTAN MED 0.5 tab PO HS 07/29/14 12/10/24 History [Yoel 5-40 mg Tablet] Tamsulosin [Flomax] 0.4 mg PO HS 10/10/21 12/10/24 History allopurinoL [Zyloprim] 300 mg PO HS 10/10/21 12/10/24 History Atorvastatin [Lipitor] 40 mg PO HS 12/03/24 12/10/24 History Cetirizine HCl [Zyrtec] 10 mg PO DAILY PRN 12/03/24 12/10/24 History Chlorpheniramine/Dextromethorp 1 each PO DIRECTED PRN 12/03/24 12/10/24 History [Coricidin Hbp Cough & Cold Tab] EPINEPHrine (Auto Inject) [Epipen] 0.3 mg IM ONCE PRN 12/03/24 12/10/24 History Guselkumab [Tremfya] 100 mg IM Q56D 12/03/24 12/10/24 History HYDROcodone/APAP 10-325MG [Novice 1 each PO TID PRN 12/03/24 12/10/24 History 10] Pioglitazone HCl/Metformin HCl 1 each PO HS 12/03/24 12/10/24 History [Actoplus Met 15 mg-500 mg tab] Allergies Allergy/AdvReac Type Severity Reaction Status Date / Time bee venom protein (honey bee) Allergy Severe Anaphylaxis Verified 12/10/24 11:55 silk Allergy Severe Itching Verified 12/10/24 11:55 morphine AdvReac Swelling Verified 12/10/24 11:55 Cats Allergy Unknown Uncoded 12/10/24 11:55 Physical Exam Vitals: Vital Signs Temp Pulse Pulse Pulse Resp BP Pulse Ox 12/11/24 06:57 98.9 F 88 17 129/54 90 L 12/11/24 00:41 98.5 F 85 18 124/63 92 L 12/10/24 20:00 86 12 12/10/24 19:57 98 130/75 97 12/10/24 19:41 80 124/73 95 12/10/24 19:26 88 123/70 97 12/10/24 19:11 96 144/73 94 L 12/10/24 18:56 88 142/76 95 12/10/24 18:41 88 136/81 91 L 12/10/24 18:26 87 121/80 92 L 12/10/24 18:11 87 126/70 98 12/10/24 17:56 89 131/70 95 12/10/24 17:41 95 136/68 91 L 12/10/24 17:30 86 12 120/66 98 12/10/24 17:15 93 18 119/69 96 12/10/24 17:00 92 18 126/72 98 12/10/24 16:45 90 12 124/73 100 12/10/24 16:30 90 14 106/65 97 12/10/24 16:15 97.6 F 85 16 114/65 96 12/10/24 12:15 98.2 F 66 16 147/90 96 Intake and Output 12/10/24 12/11/24 12/11/24 22:59 06:59 14:59 Intake Total 200 Output Total 1300 900 310 Balance -1100 -900 -310 Intake: IV 200 Output: Urine 1300 900 310 Uretheral (Weinberg) 310 Other: Voiding Method Indwelling Catheter # Voids 1 1 Weight 77.9 kg Results Labs: Abnormal Lab Results - Last 24 Hours (Table) 12/10/24 12/10/24 12/10/24 Range/Units 12:20 17:30 20:14 POC Glucose (mg/dL) 122 H 161 H 242 H (70-110) mg/dL 12/11/24 Range/Units 06:13 POC Glucose (mg/dL) 117 H (70-110) mg/dL
[2024-12-11 16:41] LABS: Glucose,Whole Blood 130 mg/dL (70-110)
[2024-12-11 19:41] VITALS: RESP 17
[2024-12-11 20:02] LABS: Glucose,Whole Blood 128 mg/dL (70-110)
[2024-12-12 02:01] VITALS: PULSE 94
[2024-12-12 06:13] LABS: Glucose,Whole Blood 138 mg/dL (70-110)
--- NOTE | 2024-12-12 08:39 | P.DS ---
Providers Date of admission: 12/10/2024 Expected date of discharge: 12/12/24 Attending physician: Lupe Mariee Consults: 12/10/24 16:17 Consult Physician Routine Consulting Provider: Kevin Solorzano Consult Reason/Comments: Medical management Do you want consulting provider notified?: Yes Primary care physician: Eze Pruett - Discharge Diagnosis(es) (1) History of lumbar fusion Current Visit: Yes Status: Acute (2) Lumbar scoliosis Current Visit: Yes Status: Acute (3) Lumbar stenosis Current Visit: Yes Status: Acute (4) Lumbar degenerative disc disease Current Visit: No Status: Acute (5) Lumbar facet arthropathy Current Visit: No Status: Acute (6) Radiculopathy with lower extremity symptoms Current Visit: No Status: Acute (7) S/P lumbar fusion Current Visit: No Status: Acute Priority: Medium Hospital Course: This is a pleasant 64-year-old male who presented with Low back pain, Degenerative scoliosis, L2-3 spinal stenosis, L2-3 herniated nucleus pulposus, L2-3 facet cyst, Lower extremity radiculopathy, and History L3-4 and L4-5 lumbar fusion with retained hardware who failed outpatient conservative therapy. He was admitted for an L2-3 minimally invasive posterior lateral decompression and fusion with transforaminal lumbar interbody fusion with extension to retained hardware at L3-4 and L4-5 . The patient tolerated the procedure well and did well postoperatively. His pain has been well-controlled with oral medications. He is not complaining of any lower extremity weakness or radiculopathy. He feels he is ready for discharge home today. He has a walker at home for home use as needed. Condition on day of discharge stable. Patient will be discharged home. Patient was cleared preoperatively for surgery by Dr. Pruett. Patient currently denies any nausea, vomiting, fever, or chills. Patient is eating and voiding freely without difficulty. Patient may shower Optifoam dressing intact. Patient may remove Optifoam dressing in 3 days and shower without a dressing at that time. Patient should refrain from driving until at least after their first follow-up appointment in the office. Patient should avoid excessive bending, lifting, and twisting; no lifting greater than 10 pounds. MAPS has been reviewed today, 12/12/2024, with an Overall Overdose Risk Score of 300. An "Opiod Start Talking" Form has been signed and placed in the patient's chart. A prescription has been written for hydrocodone 10 mg / 325 mg, 1 tab, every 8 hours, as needed for acute pain, dispense #21. Prescriptions also written for cyclobenzaprine 10 mg, 1 tab, 3 times daily, as needed for muscle spasm dispense #60, and Senokot-S, 1 tab, twice daily, as needed for constipation, dispense #60. Prescriptions are sent to the [facility] pharmacy located within [facility] per request of the patient. Physical Exam on day of discharge: Patient is awake, alert, and oriented 3 Vital signs stable Good chest excursion with deep inspiration and expiration Abdomen soft nontender No signs or symptoms of DVT; no calf pain Extensor hallucis longus, plantarflexion, and dorsiflexion positive sustained bilateral lower extremities Surgical incision sites are clean, dry, and intact the lumbar spine and right iliac crest; no erythema, purulence, or signs of infection Left surgical incision site swelling has improved as compared to yesterday Procedures: L2-3 minimally invasive posterior lateral decompression and fusion with transforaminal lumbar interbody fusion with extension to retained hardware at L3-4 and L4-5 Patient Condition at Discharge: Stable Plan - Discharge Summary Discharge Rx Participant: Yes New Discharge Prescriptions: New Cyclobenzaprine [Flexeril] 10 mg PO TID PRN #60 tab PRN Reason: Muscle Spasm HYDROcodone/APAP 10-325MG [[place] 10] 1 each PO Q6H PRN #28 tab PRN Reason: Pain Sennosides-Docusate Sodium [Senokot-S] 1 tab PO BID PRN #60 tablet PRN Reason: Constipation No Action Amitriptyline HCl 50 mg PO HS amLODIPine BES/OLMESARTAN MED [Yoel 5-40 mg Tablet] 0.5 tab PO HS allopurinoL [Zyloprim] 300 mg PO HS Atorvastatin [Lipitor] 40 mg PO HS Guselkumab [Tremfya] 100 mg IM Q56D Chlorpheniramine/Dextromethorp [Coricidin Hbp Cough & Cold Tab] 1 each PO DIRECTED PRN PRN Reason: Cough Pioglitazone HCl/Metformin HCl [Actoplus Met 15 mg-500 mg tab] 1 each PO HS Tamsulosin [Flomax] 0.4 mg PO HS EPINEPHrine (Auto Inject) [Epipen] 0.3 mg IM ONCE PRN PRN Reason: Anaphylaxis HYDROcodone/APAP 10-325MG [[place] 10] 1 each PO TID PRN PRN Reason: Pain Cetirizine HCl [Zyrtec] 10 mg PO DAILY PRN PRN Reason: Allergic Reaction Discharge Medication List Amitriptyline HCl 50 mg PO HS 06/11/14 [History] amLODIPine BES/OLMESARTAN MED [Yoel 5-40 mg Tablet] 0.5 tab PO HS 07/29/14 [History] Tamsulosin [Flomax] 0.4 mg PO HS 10/10/21 [History] allopurinoL [Zyloprim] 300 mg PO HS 10/10/21 [History] Atorvastatin [Lipitor] 40 mg PO HS 12/03/24 [History] Cetirizine HCl [Zyrtec] 10 mg PO DAILY PRN 12/03/24 [History] Chlorpheniramine/Dextromethorp [Coricidin Hbp Cough & Cold Tab] 1 each PO DIRECTED PRN 12/03/24 [History] EPINEPHrine (Auto Inject) [Epipen] 0.3 mg IM ONCE PRN 12/03/24 [History] Guselkumab [Tremfya] 100 mg IM Q56D 12/03/24 [History] HYDROcodone/APAP 10-325MG [[place] 10] 1 each PO TID PRN 12/03/24 [History] Pioglitazone HCl/Metformin HCl [Actoplus Met 15 mg-500 mg tab] 1 each PO HS 12/03/24 [History] Cyclobenzaprine [Flexeril] 10 mg PO TID PRN #60 tab 12/12/24 [Rx] HYDROcodone/APAP 10-325MG [[place] 10] 1 each PO Q6H PRN #28 tab 12/12/24 [Rx] Sennosides-Docusate Sodium [Senokot-S] 1 tab PO BID PRN #60 tablet 12/12/24 [Rx] Follow up Appointment(s)/Referral(s): Yo Lin, JOHNNY [PHYSICIAN RESIDENTIAL FIELD MANAGER] - 2 Weeks (Patient may follow-up with Yo Lin PA-C or Dr. Shakir Mariee at [facility] in 2-3 weeks following discharge. ) Activity/Diet/Wound Care/Special Instructions: 1. Patient may shower with Optifoam dressing intact. 2. Patient may remove Optifoam dressing in 3 days and shower without a dressing at that time. 3. Patient should refrain from driving until at least after their first follow- up appointment in the office. 4. Patient should avoid excessive bending, twisting, lifting; avoid overhead lifting; no lifting greater than 10 pounds 5. Take medications as prescribed 6. Patient should avoid anti-inflammatory medications over the next 6 weeks postoperatively 7. Patient may utilize walker to aid in ambulation as needed 8. Do not soak in tub Discharge Disposition: HOME SELF-CARE
[2024-12-12 08:40] VITALS: BP 159/79; TEMP 98.3
[2024-12-12] MEDS: HYDROcodone/APAP 10-325MG 1 EACH TAB PO PRN (11:11)
== END 2024-12-12 11:27 | disposition home or self-care (01) ==
LOC: OR 11:31 → 4SSUR 15:58 → OR 12-12 11:27
PROVIDERS: ATTEND Orthopaedic Surgery Orthopaedic Surgery of the Spine
DX: M48.061 Spinal stenosis, lumbar region without neurogenic claudication (principal); M51.16 Intervertebral disc disorders with radiculopathy, lumbar region; M41.80 Other forms of scoliosis, site unspecified; E11.9 Type 2 diabetes mellitus without complications; E78.00 Pure hypercholesterolemia, unspecified; I10 Essential (primary) hypertension; K58.9 Irritable bowel syndrome, unspecified; Z88.5 Allergy status to narcotic agent; Z90.49 Acquired absence of other specified parts of digestive tract; Z91.030 Bee allergy status; Z98.890 Other specified postprocedural states; Z79.899 Other long term (current) drug therapy; Z79.84 Long term (current) use of oral hypoglycemic drugs
CPT/HCPCS: 97116; 97161; 72100; 22633; 22840; 20936; 22853; 20939; C1713; C1762; J1100; J0690 ×3; J2405; J1171 ×3; J0665